=== PATIENT | male | born 1940 | race Caucasian/White ===

== ENCOUNTER 2024-06-02 07:38 | Inpatient (IN) | payer MEDICARE, SELFPAY ==
[2024-06-02] VITALS (50 sets, daily range): BP systolic 127–217; BP diastolic 73–158; PULSE 68–88; RESP 10–22; TEMP 36.1–36.6; O2SAT 92–98; BMI 24.3; BMI 23.1
--- NOTE | 2024-06-02 07:49 | EKG_ITS ---
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
--- NOTE | 2024-06-02 07:57 | DI.CT.S_ITS ---
PROCEDURE: CT ANGIO HEAD AND NECK INDICATIONS: neuro deficit, acute stroke suspected TECHNIQUE: After the administration of intravenous contrast, 1 mm thick sections acquired from the aortic arch through the [place]. 3-dimensional qaowhrw-olzfwsugy-gmynvbkrqe (MIP) and/or volume rendering reformats were acquired of the central intracranial vasculature and neck separately. For radiation dose reduction, the following was used: automated exposure control, adjustment of mA and/or kV according to patient size. COMPARISON: None. FINDINGS: Image quality: Diagnostic. BRAIN: CSF spaces: Ventricles are normal in size and shape. Basal cisterns are patent. No extra-axial fluid collections. Brain: No significant abnormality of the brain can be seen. Skull and face: Calvarium and facial bones appear intact, without suspicious lesions. Orbits appear normal. Sinuses: Sinuses and mastoids are clear. HEAD CT ANGIOGRAPHY: Anterior circulation: Intracranial internal carotid arteries are normal in size and flow. The flow within the paired anterior cerebral arteries is normal and symmetric. The flow within the middle cerebral arteries is normal and symmetric. The anterior communicating artery is seen. No aneurysms are seen. Posterior circulation: Visualized portions of the vertebral arteries demonstrate normal caliber, and join to form a normal appearing basilar artery. Flow within the posterior cerebral arteries is normal and symmetric. No aneurysms are seen. NECK CT ANGIOGRAPHY: Carotid system: The great vessels demonstrate a conventional anatomy as they arise from the aortic arch. The origins of the common carotid arteries appear patent. The common carotid arteries demonstrate normal caliber and courses. The bifurcation regions are both widely patent. The internal carotid arteries demonstrate normal calibers and courses. Posterior circulation: Atherosclerotic calcifications are noted involving origin of right vertebral artery with approximately 70% stenosis. The origin of vertebral artery is widely patent. The more superior extracranial portions of both vertebral arteries also demonstrate normal courses and calibers. They join to form a normal appearing basilar artery. Soft tissues: Visualized neck soft tissues demonstrate no suspicious abnormalities. Bones: No suspicious bony lesions. Visualized cervical spine appears normally aligned. IMPRESSION: 1. No hemodynamically significant stenosis or aneurysm is seen in the intracranial circulation. 2. 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 3. No hemodynamically significant stenosis or aneurysm is seen in rest of bilateral neck arteries Any quantitative measurements of stenosis were performed using NASCET criteria. Dictated by: Sunny Gan M.D. on 06/02/2024 at 8:25 Approved by: Sunny Gan M.D. on 06/02/2024 at 8:33
--- NOTE | 2024-06-02 07:57 | DI.CT.S_ITS ---
PROCEDURE: CT HEAD/BRAIN WO CON INDICATIONS: neuro deficit, stroke suspected TECHNIQUE: Noncontrast 4.5 mm thick angled axial sections acquired from the foramen magnum to the vertex, with coronal and sagittal reformats. For radiation dose reduction, the following was used: automated exposure control, adjustment of mA and/or kV according to patient size. COMPARISON: None. FINDINGS: Image quality: Diagnostic. CSF spaces: Basal cisterns are patent. No extra-axial fluid collections. The ventricles are symmetric in size and shape. Brain: No intracranial bleeds or masses. There is cerebral volume loss for age, with resultant ventricular and sulcal prominence. There are periventricular and deep white matter chronic small vessel ischemic changes. There is intracranial internal carotid artery atherosclerosis. Skull and face: Calvarium and visualized facial bones appear intact, without suspicious lesions. Sinuses: Complete opacification of right maxillary sinus. Moderate mucosal thickening in left maxillary sinus is seen. Bilateral mastoid air cells are well aerated. IMPRESSION: 1. No acute intracranial pathology. 2. Age related volume loss and mild white matter small vessel chronic ischemic changes. 3. Bilateral sinus disease as above. Dictated by: Sunny Gan M.D. on 06/02/2024 at 8:35 Approved by: Sunny Gan M.D. on 06/02/2024 at 8:36
--- NOTE | 2024-06-02 07:58 | DI.RAD.S_ITS ---
PROCEDURE: XR CHEST 1V INDICATIONS: neuro deficit TECHNIQUE: One view of the chest was acquired. COMPARISON: None. FINDINGS: Surgical changes and devices: None. Lungs and pleura: Lungs are clear. No pleural effusions or pneumothorax. Mediastinum: Mediastinal contours appear normal. Heart size is normal. Bones and chest wall: No suspicious bony lesions. Overlying soft tissues appear unremarkable. IMPRESSION: No acute cardiopulmonary abnormality is seen. Dictated by: Richar Currie M.D. on 06/02/2024 at 8:18 Approved by: Richar Currie M.D. on 06/02/2024 at 8:18
[2024-06-02 08:07] LABS: INR 0.9 (0.9-1.3); Prothrombin Time 10.4 SECONDS (9.4-12.5)
[2024-06-02 08:10] LABS: PTT Partial Thromboplastin Tim 37 SECONDS (25.1-36.5)
[2024-06-02 08:11] LABS: Add Manual Diff / Slide Review NO; Basophils Absolute Auto 100 /uL (0-100); Basophils Percent Auto 0.8 % (0-2); Eosinophils Absolute Auto 200 /uL (0-450); Eosinophils Percent Auto 2.4 % (2-4); Hematocrit 49.1 % (41-53); Hemoglobin 16.6 g/dL (13.5-17.5); Lymphocytes Absolute Auto 1700 /uL (1100-4500); Lymphocytes Percent Auto 17.1 % (25-40); Mean Corpuscular HGB Conc 33.9 % (30-36); Mean Corpuscular Hemoglobin 29.6 PG (26-34); Mean Corpuscular Volume 87.4 fL (80-100); Monocytes Absolute Auto 1000 /uL (0-900); Monocytes Percent Auto 10.4 % (3-14); Neutrophils Absolute Auto 6700 /uL (1500-7000); Neutrophils Percent Auto 69.3 % (50-75); Platelet Count 251 X10^3/uL (150-400); Red Blood Cell Count 5.61 X10^6/uL (4.5-5.9); Red Cell Distribution Width 13.4 % (11.6-14.8); White Blood Cell Count 9.7 X10^3/uL (4.5-11.0)
[2024-06-02 08:15] LABS: Alanine Aminotransferase 34 IU/L (<50); Albumin 4.6 g/dL (3.5-5.0); Albumin Globulin Ratio 1.3 (1.0-2.8); Alkaline Phosphatase 66 U/L (38-126); Aspartate Aminotransferase 38 IU/L (17-59); BUN Creatinine Ratio 22.8 (6-22); Bilirubin Total 1.3 mg/dL (0.2-1.3); Blood Urea Nitrogen 38 mg/dL (9-20); Calcium 9.9 mg/dL (8.4-10.2); Carbon Dioxide 16 mmol/L (22-32); Chloride 107 mmol/L (98-107); Estimated Glomerular Filt Rate 40 mL/min (>60); Globulin 3.5 g/dL (1.7-4.1); Glucose 177 mg/dL (80-110); HEMOLYSIS 40 (0-50); Potassium 4.8 mmol/L (3.4-5.1); Sodium 137 mmol/L (137-145); Total Protein 8.1 g/dL (6.3-8.2)
--- NOTE | 2024-06-02 08:19 | ED.NEUROSD ---
HPI - Neuro Symptoms/Deficit General Chief Complaint: Neuro Symptoms/Deficit Stated Complaint: R leg weakness Time Seen by Provider: 06/02/24 07:45 Source: patient Mode of arrival: Ambulatory History of Present Illness HPI Narrative: This is an 84-year-old male with a history of hypertension, dementia and coronary artery disease presenting with right leg weakness. His last known normal was 2100, 9:00 p.m. last night, he has seen about 7:30 a.m.. He says that he woke up about 6:00 a.m. went to get out of bed and his right leg was weak and unable to support himself with it. He also reports he has got a sensation of numbness in his right leg. There is no leg or back pain. He has not had similar symptoms in the past and denies prior history of transient ischemic attack or stroke. He was just discharged recently from [facility] after being evaluated for chest pain. He has had a previous cardiac catheterization but during his last admission per his son's report did not have any invasive procedures. Of note, his son is a would be telemarketer and is 1 of the 2 medics who brings the patient today. He was not hypoglycemic pre-hospital and he was hypertensive pre-hospital. Patient denies headache chest pain. Records from [facility] were obtained, he was discharged on 05/31, yesterday. There was an echocardiogram that was done yesterday showed a 60-65% ejection fraction basal inferior and inferoseptal strange hypokinetic, mild enlargement of the ascending aorta, slight aortic valve calcification without stenosis otherwise no valvular disease was described. He was evaluated in the emergency department. Per note from yesterday, home medications include aspirin 81 mg a day Lipitor 40 mg daily Plavix 75 mg daily Plendil 10 mg daily glipizide 5 mg daily Cozaar 25 mg daily metformin 500 mg nitroglycerin as needed On Anticoagulants: No Related Data Allergies Allergy/AdvReac Type Severity Reaction Status Date / Time No Known Drug Allergies Allergy Verified 06/02/24 07:46 Review of Systems Hematologic/Lymphatic On Anticoagulants: No Patient History Social History Smoking Status: Never smoker Smoking Status: Never smoker Exam Narrative Exam Narrative: Elderly male appears to be in no distress Initial Vital Signs Initial Vital Signs: Vital Signs Pulse Oximetry 92 06/02/24 07:41 He is noted to be hypertensive on arrival [facility] Head: normocephalic and atraumatic Eyes Other: Pupils equal round and reactive extraocular movements are intact Neck Other: Neck is supple there is no carotid bruit his right carotid pulse is quite prominent. Resp Other: Lungs are clear no respiratory distress Cardio Other: Regular rhythm rate no murmur rub or gallop GI Other: Abdomen is soft and nontender Skin Other: Warm and dry Neuro Cranial Nerves: CN's II-XI intact bilaterally and tongue midline Cognition: normal cognition Speech: speech normal Motor: no pronator drift Sensory Exam: no sensory deficits noted Other: He is able to lift his right leg off the table but it drifts down, has decreased coordination odriqp-nrqz-facmpo on the right and heel-gayle on the right, no visual field cuts Scores NIH Stroke Scale Level of Conciousness: Alert, keenly responsive Ask month/age: Answers both questions correctly. Open/close eyes, close hand: Performs both tasks correctly Best gaze horizontal: Normal Visual odell: No visual loss Facial palsy: Normal symetrical movement Left arm drift: No drift for full 10 sec Right arm drift: No drift for full 10 sec Left leg drift: No drift for full 5 sec Right leg drift: Drifts down, not to bed Limb ataxia: Present in two limbs Sensory on face/arms/legs: Normal, no sensory loss Best language: No aphasia, normal Dysarthria: Normal Extinction or inattention: No abnormality Total NIH Stroke scale score: 3 Course Orders Ordered: ED Orders 06/02/24 07:44 CBC Auto Diff [Complete Blood Count AUTO DIFF] Stat CMP [Comprehensive Metabolic Panel] Stat PTT Partial Thromboplastin Etienne Stat Prothrombin Time INR Stat 06/02/24 07:57 CT angio head and neck Stat CT head/brain wo con Stat 06/02/24 07:58 Chest [XR chest 1V] Stat 06/02/24 09:35 Troponin I Stat 06/02/24 11:37 Troponin I Stat Nitroglycerin (Nitroglycerin 0.4 Mg Sl Tab) 0.4 mg SL [id number] PRN PRN Reason: Chest Pain Last Admin: 06/02/24 10:33 Dose: 0.4 mg Documented By: Admin: 06/02/24 10:00 Dose: 0.4 mg Documented By: LOUIE Discontinued Medications Nitroglycerin (Nitroglycerin Oint 1 Inch/Gm Oint...G.) 0.5 inch TOP NOW ONE Stop: 06/02/24 11:17 Last Admin: 06/02/24 11:26 Dose: 0.5 inch Documented By: CANDIS Reevaluation(s) Reevaluation #1: Patient was re-evaluated at 9:45 a.m.. He is complaining of left-sided chest and shoulder pain that he describes as sharp. This apparently is the same pain that had took him to [facility] yesterday, onset yesterday was with exertion today obviously is at rest. Pain is still present. His is present now, confirms previous history, also has a current med list and the patient is not presently on Plavix. Patient did take 325 of aspirin today. Reevaluation #2: At 11:15 a.m., he is reporting some continued chest pain and left shoulder pain this is improved with nitroglycerin but still present. Additionally however the pain also improves when his arm is internally rotated and laid across his abdomen as opposed and when his arm is lying beside him. First troponin is normal. I have ordered a dose of nitroglycerin paste, the patient's blood pressure is fairly consistent with his arrival. We will discuss with the hospitalist Reevaluation #3: Patient resting comfortably, pain-free Consultations Consultation #1: D/W Dr Luna, hospitalist, accepts admission. Vital Signs Vital signs: Vital Signs - 8 hr 06/02/24 07:41 06/02/24 07:42 06/02/24 07:42 Temperature Pulse Rate 88 Respiratory Rate Blood Pressure 208/108 H Pulse Oximetry 92 98 Oxygen Delivery Method Room Air 06/02/24 07:46 06/02/24 08:00 06/02/24 08:30 Temperature 97.9 F Pulse Rate 88 74 70 Respiratory Rate 18 Blood Pressure 208/108 H Pulse Oximetry 97 98 97 Oxygen Delivery Method Room Air 06/02/24 08:47 06/02/24 08:47 06/02/24 08:47 Temperature Pulse Rate 74 74 Respiratory Rate 12 10 L Blood Pressure 200/91 H 200/91 H Pulse Oximetry 97 96 Oxygen Delivery Method Room Air 06/02/24 09:00 06/02/24 09:00 06/02/24 09:30 Temperature Pulse Rate 72 Respiratory Rate 10 L Blood Pressure 165/79 H 174/94 H Pulse Oximetry 97 Oxygen Delivery Method 06/02/24 09:30 06/02/24 10:00 06/02/24 10:00 Temperature Pulse Rate 74 74 Respiratory Rate 12 Blood Pressure 200/91 H 200/91 H Pulse Oximetry 98 Oxygen Delivery Method Room Air 06/02/24 10:00 06/02/24 10:10 06/02/24 10:10 Temperature Pulse Rate 75 83 Respiratory Rate 12 16 Blood Pressure 159/88 H Pulse Oximetry 97 96 Oxygen Delivery Method 06/02/24 10:30 06/02/24 10:30 06/02/24 10:40 Temperature Pulse Rate 77 Respiratory Rate Blood Pressure 167/90 H 127/74 Pulse Oximetry 97 Oxygen Delivery Method 06/02/24 10:40 06/02/24 10:45 06/02/24 10:45 Temperature Pulse Rate 86 84 Respiratory Rate 12 13 Blood Pressure 132/78 Pulse Oximetry 96 95 Oxygen Delivery Method 06/02/24 10:50 06/02/24 10:50 06/02/24 10:55 Temperature Pulse Rate 81 Respiratory Rate Blood Pressure 167/79 H 172/89 H Pulse Oximetry 96 Oxygen Delivery Method 06/02/24 10:55 06/02/24 11:00 06/02/24 11:00 Temperature Pulse Rate 79 79 Respiratory Rate 12 14 Blood Pressure 171/92 H Pulse Oximetry 96 97 Oxygen Delivery Method 06/02/24 11:05 06/02/24 11:05 06/02/24 11:10 Temperature Pulse Rate 80 Respiratory Rate 19 Blood Pressure 174/93 H 170/87 H Pulse Oximetry 97 Oxygen Delivery Method 06/02/24 11:10 06/02/24 11:15 06/02/24 11:15 Temperature Pulse Rate 78 79 Respiratory Rate 11 L 20 Blood Pressure 176/93 H Pulse Oximetry 97 97 Oxygen Delivery Method 06/02/24 11:20 06/02/24 11:20 06/02/24 11:25 Temperature Pulse Rate 77 Respiratory Rate 11 L Blood Pressure 181/87 H 181/89 H Pulse Oximetry 97 Oxygen Delivery Method 06/02/24 11:25 06/02/24 11:26 06/02/24 11:30 Temperature Pulse Rate 77 77 Respiratory Rate 12 Blood Pressure 190/94 H 190/94 H Pulse Oximetry 97 Oxygen Delivery Method 06/02/24 11:30 06/02/24 11:35 06/02/24 11:35 Temperature Pulse Rate 79 76 Respiratory Rate 16 11 L Blood Pressure 174/93 H Pulse Oximetry 97 97 Oxygen Delivery Method 06/02/24 11:40 06/02/24 11:40 06/02/24 11:45 Temperature Pulse Rate 75 Respiratory Rate 12 Blood Pressure 161/89 H 172/90 H Pulse Oximetry 97 Oxygen Delivery Method 06/02/24 11:45 06/02/24 11:50 06/02/24 11:50 Temperature Pulse Rate 76 75 Respiratory Rate 14 12 Blood Pressure 181/82 H Pulse Oximetry 96 95 Oxygen Delivery Method 06/02/24 11:55 06/02/24 11:55 06/02/24 12:00 Temperature Pulse Rate 74 Respiratory Rate 12 Blood Pressure 167/94 H 202/158 H Pulse Oximetry 96 Oxygen Delivery Method 06/02/24 12:00 06/02/24 12:03 06/02/24 12:03 Temperature Pulse Rate 79 76 Respiratory Rate 22 11 L Blood Pressure 194/88 H Pulse Oximetry 97 97 Oxygen Delivery Method 06/02/24 12:05 06/02/24 12:05 06/02/24 12:10 Temperature Pulse Rate 76 76 Respiratory Rate 15 17 Blood Pressure 186/77 H Pulse Oximetry 97 96 Oxygen Delivery Method 06/02/24 12:10 Temperature Pulse Rate Respiratory Rate Blood Pressure 172/86 H Pulse Oximetry Oxygen Delivery Method MDM - Neuro Symptoms/Deficit Lab Data Lab results narrative: CBC with diff is unremarkable, INR normal, CMP notable for a glucose of 177, creatinine is elevated at 1.67 06/02/24 07:44 06/02/24 07:44 Labs: Lab Results 06/02/24 06/02/24 06/02/24 Range/Units 07:44 09:35 11:37 WBC 9.7 (4.5-11.0) X10^3/uL RBC 5.61 (4.5-5.9) X10^6/uL Hgb 16.6 (13.5-17.5) g/dL Hct 49.1 (41-53) % MCV 87.4 (80-100) fL MCH 29.6 (26-34) PG MCHC 33.9 (30-36) % RDW 13.4 (11.6-14.8) % Plt Count 251 (150-400) X10^3/uL Neut % (Auto) 69.3 (50-75) % Lymph % (Auto) 17.1 L (25-40) % [place] % (Auto) 10.4 (3-14) % Eos % (Auto) 2.4 (2-4) % Baso % (Auto) 0.8 (0-2) % Neut # (Auto) 6700 (4846-3117) /uL Lymph # (Auto) 1700 (3054-5720) /uL [place] # (Auto) 1000 H (0-900) /uL Eos # (Auto) 200 (0-450) /uL Baso # (Auto) 100 (0-100) /uL PT 10.4 (9.4-12.5) SECONDS INR 0.9 (0.9-1.3) APTT 37 H (25.1-36.5) SECONDS Sodium 137 (137-145) mmol/L Potassium 4.8 (3.4-5.1) mmol/L Chloride 107 (98-107) mmol/L Carbon Dioxide 16 L (22-32) mmol/L BUN 38 H (9-20) mg/dL Creatinine 1.67 H (0.66-1.25) mg/dL Estimated GFR 40 L (>60) mL/min BUN/Creatinine Ratio 22.8 H (6-22) Glucose 177 H (80-110) mg/dL Calcium 9.9 (8.4-10.2) mg/dL Total Bilirubin 1.3 (0.2-1.3) mg/dL AST 38 (17-59) IU/L ALT 34 (<50) IU/L Alkaline Phosphatase 66 (38-126) U/L Troponin I < 0.012 < 0.012 (0.01-0.034) ng/mL Total Protein 8.1 (6.3-8.2) g/dL Albumin 4.6 (3.5-5.0) g/dL Globulin 3.5 (1.7-4.1) g/dL Albumin/Globulin Ratio 1.3 (1.0-2.8) Imaging Data Chest x-ray: My Impression: Independent review of chest x-ray, no acute findings Radiologist's Impression: Per Radiology no acute CT scan - head: My Impression: Independently reviewed CT head, no acute findings Radiologist's Impression: Reviewed radiology report, no acute abnormality reported CTA - brain/neck: Radiologist's Impression: [address] [address] [address] Scan Report Signed Patient: Migue Calderón MR#: [id number] : 1940 Acct:[id number] Age/Sex: 84 / M Date of Service: 06/02/24 Loc: ED Accession Number: [id number] Procedure: CT angio head and neck Ordering Provider: Ashvin Jamil MD PROCEDURE: CT ANGIO HEAD AND NECK INDICATIONS: neuro deficit, acute stroke suspected TECHNIQUE: After the administration of intravenous contrast, 1 mm thick sections acquired from the aortic arch through the [place]. 3-dimensional edtuncr-pthufaqlw-yvmpehbfdy (MIP) and/or volume rendering reformats were acquired of the central intracranial vasculature and neck separately. For radiation dose reduction, the following was used: automated exposure control, adjustment of mA and/or kV according to patient size. COMPARISON: None. FINDINGS: Image quality: Diagnostic. BRAIN: CSF spaces: Ventricles are normal in size and shape. Basal cisterns are patent. No extra-axial fluid collections. Brain: No significant abnormality of the brain can be seen. Skull and face: Calvarium and facial bones appear intact, without suspicious lesions. Orbits appear normal. Sinuses: Sinuses and mastoids are clear. HEAD CT ANGIOGRAPHY: Anterior circulation: Intracranial internal carotid arteries are normal in size and flow. The flow within the paired anterior cerebral arteries is normal and symmetric. The flow within the middle cerebral arteries is normal and symmetric. The anterior communicating artery is seen. No aneurysms are seen. Posterior circulation: Visualized portions of the vertebral arteries demonstrate normal caliber, and join to form a normal appearing basilar artery. Flow within the posterior cerebral arteries is normal and symmetric. No aneurysms are seen. NECK CT ANGIOGRAPHY: Carotid system: The great vessels demonstrate a conventional anatomy as they arise from the aortic arch. The origins of the common carotid arteries appear patent. The common carotid arteries demonstrate normal caliber and courses. The bifurcation regions are both widely patent. The internal carotid arteries demonstrate normal calibers and courses. Posterior circulation: Atherosclerotic calcifications are noted involving origin of right vertebral artery with approximately 70% stenosis. The origin of vertebral artery is widely patent. The more superior extracranial portions of both vertebral arteries also demonstrate normal courses and calibers. They join to form a normal appearing basilar artery. Soft tissues: Visualized neck soft tissues demonstrate no suspicious abnormalities. Bones: No suspicious bony lesions. Visualized cervical spine appears normally aligned. IMPRESSION: 1. No hemodynamically significant stenosis or aneurysm is seen in the intracranial circulation. 2. 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 3. No hemodynamically significant stenosis or aneurysm is seen in rest of bilateral neck arteries Any quantitative measurements of stenosis were performed using NASCET criteria. Dictated by: Sunny Gan M.D. on 06/02/2024 at 8:25 Approved by: Sunny Gan M.D. on 06/02/2024 at 8:33 ECG Data Interpretation: ECG shows normal sinus rhythm at [address] segment changes intervals are normal MDM Narrative Medical decision making narrative: 84-year-old male presenting with right-sided leg weakness onset overnight while sleeping. Last known normal was approximately 10 hours prior to arrival. Total stroke score was 3. No hemorrhage on CT and no major cerebrovascular disease. He had received aspirin prior to arrival. Additionally has a history of coronary artery disease and had some chest pain which resolved it is not clear that nitroglycerin cause a resolution chest pain occurred while at rest in the emergency department. No ischemic EKG changes and troponins were normal x2. He had just been at [facility] yesterday and was evaluated for similar chest pain. I do not think he is having an acute cardiac event at present. Patient will be admitted to the hospitalist service. Discharge Plan Departure Patient Disposition: Admitted as Observation Clinical Impression: Cerebrovascular accident Qualifiers: CVA mechanism: unspecified Qualified Code(s): I63.9 - Cerebral infarction, unspecified Chest pain Qualifiers: Chest pain type: unspecified Qualified Code(s): R07.9 - Chest pain, unspecified Admit Date/Time: 06/02/24 12:30
--- NOTE | 2024-06-02 09:36 | EKG_ITS ---
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
[2024-06-02] MEDS: NITROGLYCERIN 0.4 MG SL TAB SL ×2 (10:00→10:33)
--- NOTE | 2024-06-02 10:01 | PC.NURSE ---
Patient reports left chest and left arm/shoulder pain at 9/10 at this time. 1 nitro given.
[2024-06-02 10:25] LABS: Troponin I < 0.012 ng/mL (0.01-0.034)
[2024-06-02] MEDS: NITROGLYCERIN OINT 1 INCH/GM OINT...G. 0.5 INCH TOP (11:26)
[2024-06-02 12:15] LABS: Troponin I < 0.012 ng/mL (0.01-0.034)
--- NOTE | 2024-06-02 12:38 | DI.MRI.S_ITS ---
PROCEDURE: MR HEAD/BRAIN WO CON INDICATIONS: R leg weakness, r/o CVA TECHNIQUE: Non-contrast axial T1 spin echo, axial T2 fast spin echo, sagittal and axial FLAIR, coronal T2 fast spin echo, axial gradient echo, axial diffusion and ADC through the brain. COMPARISON: [facility], CT, CT ANGIO HEAD AND NECK, 06/02/2024, 8:08. [facility], CT, CT HEAD/BRAIN WO CON, 06/02/2024, 8:08. FINDINGS: Image quality: Excellent. CSF spaces: Ventricles appear symmetric in size and shape. Basal cisterns are patent. No extra-axial fluid collections. Brain: Abnormal diffusion restriction in the left [place] radiata extending to the posterior limb of the left internal capsule (16-18). No intracranial bleeds or mass effects. There is cerebral volume loss for age. There are periventricular and deep white matter chronic small vessel ischemic changes. Brainstem appears normal. No chronic ischemic insults. Normal intravascular flow voids are present. Skull and face: Calvarial bone marrow is normal in signal. Orbits are normal. Sinuses: Complete opacification of the right maxillary sinus (7/6), which can be seen with sinusitis. Mild mucosal thickening in the right maxillary sinus. Sinuses and mastoids are otherwise clear. IMPRESSION: 1. Acute stroke involving the left hays radiata white matter extending to the posterior limb of the internal capsule. 2. Other chronic changes noted above. These findings were communicated via telephone to the ordering provider, Dr Luna, by Malachi Norris MD on 06/02/2024 at 3:14 p.m.. Dictated by: Malachi Norris M.D. on 06/02/2024 at 15:04 Approved by: Malachi Norris M.D. on 06/02/2024 at 15:15
[2024-06-02] MEDS: CLOPIDOGREL 75 MG TABLET 300 MG PO (16:31)
[2024-06-02] MEDS: ASPIRIN 81 MG CHEW TAB 324 MG PO (16:33)
[2024-06-02] MEDS: INSULIN LISPRO 100 UNIT/ML 3ML VIAL SUBCUT ×2 (16:33→20:42)
--- NOTE | 2024-06-02 19:29 | P.HP_ITS ---
History of Present Illness History of Present Illness Date Patient Seen: 06/02/24 Time Patient Seen: 14:00 Chief complaint: R leg weakness Narrative: This is an 84-year-old male with a past medical history of dementia, coronary artery disease, type 2 diabetes, CKD stage 3 who was just recently admitted to [facility] but left against medical advice 2 days ago for currently unclear reasons, but the patient states this was due to inability to get some sort of testing done. He was doing okay at home but this morning reported that his right leg gave out and he was not moving it well. He denies any current complaints, thinking that his symptoms had largely resolved. He denied any current numbness, tingling, or weakness, though he did not try and stand on it since admission. He also continues to complain of left-sided shoulder pain that is worse with movement. He states that this is the pain that he was evaluated for the outside hospital. There he had an unremarkable echocardiogram with no wall motion abnormalities, and a stress test that was deemed probably low risk, based on the read available: There is a medium size, mild intensity basal to?mid inferior and inferoseptal wall defect. This is occurring in the setting of diaphragmatic attenuation which could account for the defect however ischemia and/or scar cannot be ruled out. No segmental wall motion abnormalities noted on gated imaging. He was admitted for further evaluation for either TIA or stroke. He did have an MRI already which did show an acute infarct in the left hays radiata. He was given an aspirin and Plavix load. Prior TTE at [facility] on 05/31 The ejection fraction is estimated to be 60-65%. The basal inferior and inferoseptal strange are hypokinetic. Diastolic parameters suggest probable normal left ventricular diastolic function and normal filling pressures. The right ventricle is normal in size and function. Pulmonary artery pressures cannot be estimated because of the lack of a measurable TR jet velocity but the IVC suggests a CVP of around 3 mmHg. The ascending aorta is mildly enlarged. Compared to the prior study 03/15/2019, the left ventricle is more dynamic and the anterior hypokinesis has resolved. [facility] results in 2019: 1) Coronary angiography: left dominance ?A. Left main: normal caliber vessel with 20% calcific stenosis distally. ?B. Left Anterior Descending (LAD) Artery: normal caliber vessel with 80% tubular calcific stenosis between the first and second diagonal branches. ? The first diagonal branch has 99% eccentric stenosis proximally and 2nd diagonal branch appears to have 80% ostial stenosis. ? ?C. Left Circumflex (LCx): ?Large caliber dominant vessel with mild luminal irregularities. ?There are collaterals going to the RCA. ?D. Right Coronary Artery: small to medium caliber vessel with chronic total occlusion in the mid segment. ?There are collaterals from the LCx to the RCA. [facility] Social History household members: spouse Smoking Status: Never smoker alcohol intake: former Meds Home Medications and Allergies Home Medications Medication Instructions Recorded Confirmed Type atorvastatin 40 mg tablet 40 mg PO DAILY 06/02/24 06/02/24 History empagliflozin 25 mg tablet 25 mg PO DAILY 06/02/24 06/02/24 History (Jardiance) felodipine 10 mg tablet,extended 10 mg PO DAILY 06/02/24 06/02/24 History release 24 hr glipizide 10 mg tablet, extended 10 mg PO BID 06/02/24 06/02/24 History release 24 hr linagliptin 5 mg tablet (Tradjenta) 5 mg PO DAILY 06/02/24 06/02/24 History losartan 100 mg tablet 100 mg PO DAILY 06/02/24 06/02/24 History metformin 500 mg tablet 500 mg PO BID 06/02/24 06/02/24 History Allergies Allergy/AdvReac Type Severity Reaction Status Date / Time No Known Drug Allergies Allergy Verified 06/02/24 07:46 Review of Systems Review of Systems Narrative: All other systems reviewed with the patient and are negative unless otherwise stated. Exam Vital Signs (past 8 hours): - 06/02/24 11:30 06/02/24 11:30 06/02/24 11:35 Temperature Pulse Rate 79 Respiratory Rate 16 Blood Pressure 190/94 H 174/93 H Pulse Oximetry 97 Oxygen Delivery Method Oxygen Flow Rate 06/02/24 11:35 06/02/24 11:40 06/02/24 11:40 Temperature Pulse Rate 76 75 Respiratory Rate 11 L 12 Blood Pressure 161/89 H Pulse Oximetry 97 97 Oxygen Delivery Method Oxygen Flow Rate 06/02/24 11:45 06/02/24 11:45 06/02/24 11:50 Temperature Pulse Rate 76 Respiratory Rate 14 Blood Pressure 172/90 H 181/82 H Pulse Oximetry 96 Oxygen Delivery Method Oxygen Flow Rate 06/02/24 11:50 06/02/24 11:55 06/02/24 11:55 Temperature Pulse Rate 75 74 Respiratory Rate 12 12 Blood Pressure 167/94 H Pulse Oximetry 95 96 Oxygen Delivery Method Oxygen Flow Rate 06/02/24 12:00 06/02/24 12:00 06/02/24 12:03 Temperature Pulse Rate 79 Respiratory Rate 22 Blood Pressure 202/158 H 194/88 H Pulse Oximetry 97 Oxygen Delivery Method Oxygen Flow Rate 06/02/24 12:03 06/02/24 12:05 06/02/24 12:05 Temperature Pulse Rate 76 76 Respiratory Rate 11 L 15 Blood Pressure 186/77 H Pulse Oximetry 97 97 Oxygen Delivery Method Oxygen Flow Rate 06/02/24 12:10 06/02/24 12:10 06/02/24 12:16 Temperature Pulse Rate 76 Respiratory Rate 17 Blood Pressure 172/86 H 203/94 H Pulse Oximetry 96 Oxygen Delivery Method Oxygen Flow Rate 06/02/24 12:16 06/02/24 12:20 06/02/24 12:20 Temperature Pulse Rate 76 81 Respiratory Rate 13 16 Blood Pressure 217/95 H Pulse Oximetry 96 Oxygen Delivery Method Oxygen Flow Rate 06/02/24 12:25 06/02/24 12:25 06/02/24 12:30 Temperature Pulse Rate 83 Respiratory Rate 14 Blood Pressure 207/98 H 199/83 H Pulse Oximetry 98 Oxygen Delivery Method Oxygen Flow Rate 06/02/24 12:30 06/02/24 12:36 06/02/24 12:36 Temperature Pulse Rate 75 75 Respiratory Rate 12 14 Blood Pressure 174/87 H Pulse Oximetry 97 96 Oxygen Delivery Method Oxygen Flow Rate 06/02/24 12:40 06/02/24 12:40 06/02/24 12:46 Temperature Pulse Rate 79 74 Respiratory Rate 15 13 Blood Pressure 188/89 H Pulse Oximetry 98 96 Oxygen Delivery Method Oxygen Flow Rate 06/02/24 12:46 06/02/24 12:51 06/02/24 12:51 Temperature Pulse Rate 77 Respiratory Rate 13 Blood Pressure 182/90 H 208/93 H Pulse Oximetry 97 Oxygen Delivery Method Oxygen Flow Rate 06/02/24 12:55 06/02/24 12:55 06/02/24 13:00 Temperature Pulse Rate 76 77 Respiratory Rate 13 17 Blood Pressure 188/81 H Pulse Oximetry 98 96 Oxygen Delivery Method Oxygen Flow Rate 06/02/24 13:01 06/02/24 13:01 06/02/24 13:05 Temperature Pulse Rate 78 Respiratory Rate 12 Blood Pressure 176/96 H 178/93 H Pulse Oximetry 97 Oxygen Delivery Method Oxygen Flow Rate 06/02/24 13:05 06/02/24 13:23 06/02/24 17:23 Temperature 97.0 F L 97.1 F L Pulse Rate 79 80 68 Respiratory Rate 18 14 15 Blood Pressure 181/100 H 171/92 H Pulse Oximetry 97 95 92 Oxygen Delivery Method Room Air Oxygen Flow Rate 0 0 06/02/24 17:23 Temperature Pulse Rate Respiratory Rate Blood Pressure Pulse Oximetry 92 Oxygen Delivery Method Room Air Oxygen Flow Rate Oxygen Delivery Method Room Air Oxygen Flow Rate 0 Narrative Exam Narrative: General:? Patient is well developed and well nourished, in no distress at this time. HEENT:? Normocephalic, atraumatic, extraocular muscles intact, oral pharynx is clear and mucous membranes are moist. Neck: supple and symmetric, trachea is midline, no cervical adenopathy. Negative for JVD Chest:? Normal AP diameter and contour without kyphoscoliosis, no tachypnea, equal chest rise bilaterally. Lungs:? CTA b/l no wheezing rhonchi or rales. Cardio:?RRR no m/r/g. Abdomen: S NT ND. No CVA tenderness. Musculoskeletal:? Muscle strength and tone are equal within normal limits, no deformity. Extremities: No edema or joint effusions. No cyanosis or clubbing. Skin:? Pale,? Warm to touch,dry and intact without rashes, ulcerations or petechiae.? Neuro:? Alert and orientated to name, location, and somewhat situation. poor short term memory? sensation to touch intact in all extremities, no gross deficits noted of cranial nerves. Psych:? Patient has a well-kept appearance, appropriate affect, mental status attitude thought context and judgment are appropriate for age. Objective ECG Impression: Normal sinus rhythm with occasional PVC, no significant evidence for acute ischemia Labs 06/02/24 07:44 06/02/24 07:44 Labs: Laboratory Results - last 24 hr 06/02/24 06/02/24 06/02/24 07:44 09:35 11:37 WBC 9.7 RBC 5.61 Hgb 16.6 Hct 49.1 MCV 87.4 MCH 29.6 MCHC 33.9 RDW 13.4 Plt Count 251 Neut % (Auto) 69.3 Lymph % (Auto) 17.1 L Boyd % (Auto) 10.4 Eos % (Auto) 2.4 Baso % (Auto) 0.8 Neut # (Auto) 6700 Lymph # (Auto) 1700 Boyd # (Auto) 1000 H Eos # (Auto) 200 Baso # (Auto) 100 PT 10.4 INR 0.9 APTT 37 H Sodium 137 Potassium 4.8 Chloride 107 Carbon Dioxide 16 L BUN 38 H Creatinine 1.67 H Estimated GFR 40 L BUN/Creatinine Ratio 22.8 H Glucose 177 H Calcium 9.9 Total Bilirubin 1.3 AST 38 ALT 34 Alkaline Phosphatase 66 Troponin I < 0.012 < 0.012 Total Protein 8.1 Albumin 4.6 Globulin 3.5 Albumin/Globulin Ratio 1.3 Assessment & Plan Assessment & Plan narrative: 1. Acute CVA, present on admission - loading dose now with plavix and asa, not given in the ER - MR shows acute infarct in left carona radiata. He has good strength in his R leg now, but continue to monitor, screen with PT/OT. - continue DAPT x21 days with asa 81 mg and plavix 75 mg - Presented outside of tpa window with LKN the previous evening. - A1c at OSH was 11.9. Check lipids and TSH. - recent TTE at OSH without evidence for PFO, no need for repeat. - on atorvastatin 40 mg, will continue, consider increase to 80. 2. Coronary artery disease, chronic - recent stress test at [facility] as noted in HPI. - known CAD, dx [facility] in 2020, see HPI - asa,plavix, and statin as above. 3. Left shoulder pain - continue PT/OT, prn pain management currently - outpatient orthopedics evaluation, will check XR L shoulder to r/o occult fracture. 4. CKD stage 3 - continue to follow with BMP - CO2 16 on BMP, consider bicarb for renal protection depending on trend. 5. DM2 - no DKA based on admit labs, AG is 13. - hold home oral medications, consider lantus but with glucose <180 currently will try to control with HERMILO only. - A1c at OSH was 11.9 a few days ago. Code: Full, surrogate is patient's spouse DVT: Lovenox daily I have utilized all available immediate resources to obtain, update, or review the patient's current medications. Dispo: patient admitted under inpatient status. Unclear if will be able to discharge home or possible SNF, will have PT/OT evaluations. Additional history obtained via discussions with the ER provider. These discussions contributed to the creation of the above assessment and plan. I have reviewed patient's presenting documentation, labs, and imaging personally. Time-Based Coding :: [TOTAL MINUTES] spent with patient and on the chart (including review of chart, obtaining history, exam, reviewing outside data, placing orders, documenting exam and treatment plan, and counseling patient) on [DATE]. Quality VTE Deep Vein Thrombosis/Pulmonary Embolism Present on Admission: No
--- NOTE | 2024-06-02 19:44 | DI.RAD.S_ITS ---
PROCEDURE: XR SHOULDER LT MIN 2V INDICATIONS: L shoulder pain, r/o fracture TECHNIQUE: 3 views of the shoulder were acquired. COMPARISON: None. FINDINGS: Bones: No fractures or dislocations. No suspicious bony lesions. Visualized ribs appear intact. Moderate degenerative changes of the left acromioclavicular joint. Mild degenerative changes of the glenohumeral joint. Coracoclavicular and acromioclavicular intervals are maintained. Soft tissues: No suspicious soft tissue calcifications. IMPRESSION: Left shoulder without acute fracture or dislocation. Degenerative changes of the left acromioclavicular and glenohumeral joints. If there are persistent symptoms or clinical suspicion for pathology, then repeat radiographs or advanced imaging (CT or MRI) may be considered for further evaluation. Dictated by: Chinedu Whitaker M.D. on 06/02/2024 at 21:46 Approved by: Chinedu Whitaker M.D. on 06/02/2024 at 21:47
[2024-06-03] VITALS (8 sets, daily range): BP systolic 102–168; BP diastolic 68–89; PULSE 77–90; RESP 14–17; TEMP 35.7–36.5; O2SAT 93–97
[2024-06-03 06:22] LABS: Add Manual Diff / Slide Review NO; Basophils Absolute Auto 100 /uL (0-100); Basophils Percent Auto 1.2 % (0-2); Eosinophils Absolute Auto 200 /uL (0-450); Eosinophils Percent Auto 3.5 % (2-4); Hematocrit 44.3 % (41-53); Hemoglobin 15.3 g/dL (13.5-17.5); Lymphocytes Absolute Auto 800 /uL (1100-4500); Lymphocytes Percent Auto 13.1 % (25-40); Mean Corpuscular HGB Conc 34.5 % (30-36); Monocytes Absolute Auto 800 /uL (0-900); Monocytes Percent Auto 12.3 % (3-14); Neutrophils Absolute Auto 4400 /uL (1500-7000); Neutrophils Percent Auto 69.9 % (50-75); Platelet Count 205 X10^3/uL (150-400); Red Cell Distribution Width 13.5 % (11.6-14.8); White Blood Cell Count 6.3 X10^3/uL (4.5-11.0)
[2024-06-03 06:30] LABS: BUN Creatinine Ratio 23.9 (6-22); Blood Urea Nitrogen 38 mg/dL (9-20); Carbon Dioxide 16 mmol/L (22-32); Chloride 108 mmol/L (98-107); Cholesterol 186 mg/dL (140-199); Estimated Glomerular Filt Rate 43 mL/min (>60); Glucose 188 mg/dL (80-110); HDL Cholesterol 42 mg/dL (40-60); HEMOLYSIS < 15 (0-50); LDL Cholesterol Calculated 114 mg/dL (<100); Magnesium 2.1 mg/dL (1.6-2.3); Potassium 4.5 mmol/L (3.4-5.1); Sodium 137 mmol/L (137-145); Triglycerides 150 mg/dL (35-150)
[2024-06-03] MEDS: INSULIN LISPRO 100 UNIT/ML 3ML VIAL SUBCUT ×4 (08:50→21:27)
[2024-06-03] MEDS: ATORVASTATIN 20 MG TABLET 40 MG PO (09:08)
[2024-06-03] MEDS: ASPIRIN EC 81 MG TABLET PO (09:08)
[2024-06-03] MEDS: AMLODIPINE 5 MG TABLET 10 MG PO (09:08)
[2024-06-03] MEDS: CLOPIDOGREL 75 MG TABLET PO (09:08)
[2024-06-03] MEDS: ENOXAPARIN 40 MG/0.4 ML SYRINGE SUBCUT (09:09)
[2024-06-03] MEDS: LOSARTAN 50 MG TABLET 100 MG PO (09:09)
[2024-06-03] MEDS: INSULIN GLARGINE 100 UNIT/ML 3ML PEN 20 UNIT SUBCUT (11:53)
--- NOTE | 2024-06-03 12:24 | CM.DANOTE ---
DCP Assessment Note: Pt is a 84yo male, resident of [place], is admitted for a suspected TIA. Pt lives in a house with his , Clifford. Pt's Primary Care Provider is Dr. Dave Orellana and insurance is [facility]. Reviewed chart and discussed with multidisciplinary team pt's medical status and initial discharge needs. DCP met w/patient at bedside; introduced self and role. Present in the room are pt's and son, Jose. Patient was found in bed, alert and oriented, cooperative with assessment. Pt confirmed living situation and good support in and son. Pt expressed preference in discharging home when cleared. Pt has no hx of utilizing a home health agency or SNF Rehab. Pt did not feel home health or any other referrals in the community are necessary at this time. At this time of writing, PT/OT evaluations still pending. Plan: Awaiting PT/OT evaluations and recommendation for evolving discharge plans. CM team will follow closely for coordination of discharge plans. [place] Bat[facility] Discharge Planning/Care Management CM Discharge Assessment Start: 06/03/24 12:20 Freq: Status: Active Protocol: Document 06/03/24 12:21 MW (Rec: 06/03/24 12:24 MW [id number]) Discharge Planning Assessment Assigned Watch Band Assembler NATALEE Arias DPOA/Assigned Designee Name Sumanth Horton Contact Information [phone] Advance Directives? No History Provided By Patient,Family Member,Medical Record Has Patient been admitted in last 30 No days? Prior Living Arrangements House Household Members spouse Type of transporation used prior to Drives own vehicle admit Independent with ADL's Yes Is patient alert and oriented? Yes Caregiver for Another No Barriers to Discharge No Discharge Plan Home Referrals Initiated None needed Whiteboard Updated in Patient Room with Yes name and ext. # of Watch Band Assembler Comment [phone] Review Status In Process Please Provide Date Initial DC 06/03/24 Assessment Was Performed Next Review Type Continued Stay Review
--- NOTE | 2024-06-03 12:50 | OT.IP.EVAL ---
Addendum entered and electronically signed by Zahira Magallon OT 06/03/24 15:18: In PT session having more difficulty with his mobility needs. Therefore pt may benefit from skilled rehab. Original Note: Current Diagnoses Cerebral infarction, unspecified (06/02/24) Occupational Therapy Inpatient Evaluation/Re-Eval M1 PT/OT-IP Prior Functional Status Start: 06/03/24 12:52 Freq: NEEDED Status: Active Protocol: Document 06/03/24 12:52 [facility] (Rec: 06/03/24 13:14 [facility] [id number]) Medical Review Prior Functional Status Communication Pt has Alzheimer's dementia. Mobility and Gait Prior pt did not use a device to walk with. Activities of Daily Living and IADL's Pt was completely independent with all ADL needs and pt assisted with IADL needs. Pt states still drives, but states she is present to remind him where to go. Social History Household Members spouse Living Arrangements House Number of Floors (Floors) One Floor Number of Stairs To Enter/Railing? NO steps to enter. Home Environment Standard Height Toilet,Walk in Shower,Tub/Shower M2 OT-IP Current Condition Start: 06/03/24 12:52 Freq: Status: Active Protocol: Document 06/03/24 12:52 [facility] (Rec: 06/03/24 13:14 [facility] [id number]) Occupational Therapy Current Condition Current Condition Evaluation Date 06/03/24 Treatment Diagnosis S/P CVA Left Bond Radiata M3 OT- IP Subjective and Pain Start: 06/03/24 12:52 Freq: Status: Active Protocol: Document 06/03/24 12:52 [facility] (Rec: 06/03/24 13:14 [facility] [id number]) OT- Subjective Occupational Therapy Visit Type Type Initial Evaluation Visit Start Time 12:15 Visit Stop Time 12:50 Occupational Therapy Visit Comments Patient Comments Pt agreed to get up and pt's family present in the room. Patient/Caregiver Goals TO go home. OT Pain Assessment Pain When Pain Assessed At Rest Pain Present Pain Present Denied Pain M4 OT- IP ADL's Start: 06/03/24 12:52 Freq: Status: Active Protocol: Document 06/03/24 12:52 [facility] (Rec: 06/03/24 13:14 [facility] [id number]) OT [id number] Comments OT Self-Feeding Comments Not at meal time. OT ADL-Grooming General Evaluation Grooming Ability Standby Assistance Areas Needing Assistance Retrieving/Set-up of Grooming Items Comments OT Grooming Comments Set-up and vc how to use the automatic faucet. OT ADL-Oral Care General Eval Oral Care Ability Standby Assistance Comments Oral Care Comments VC for completeness. OT ADL-Dressing General Eval Lower Body Dressing Ability Standby Assistance Comments OT Dressing Comments Pt able to jcarlos/doff his socks with increased time. Pt tends not to cross his right leg and when able to cross her left leg to jcarlos his socks. OT ADL-Toileting Comments OT Toileting Comments Not performed. OT ADL-Bathing Comments OT Bathing Comments Not performed. Pt would benefit from shower chair at this time. M5 OT- IP IADL's Start: 06/03/24 12:52 Freq: Status: Active Protocol: Document 06/03/24 12:52 [facility] (Rec: 06/03/24 13:14 [facility] [id number]) OT-Instrumental Activities of Daily Living Home Safety Awareness Awareness of Need for Assistance at Home Decreased Awareness Ability to Problem Solve Emergency Unable to Problem Solve Situations Medication Management Medication Management Caregiver Administers Money Management Money Management Caregiver Provides Assistance Meal Preparation Meal Preparation Caregiver Provides Assist Laborer Wharf Laborer Wharf Caregiver Provides Assist Driving Driving Concerns Identified Regarding Safety M6 OT- IP Functional Cognition Start: 06/03/24 12:52 Freq: Status: Active Protocol: Document 06/03/24 12:52 [facility] (Rec: 06/03/24 13:14 [facility] [id number]) Cognitive Factors Limiting Selfcare Function Cognitive Ability Level of Alertness Alert,Confusional State Patient Orientation Name Attention Span Ability Capable of Focused Attention, Capable of Sustained Attention Ability to Follow Commands Able to Follow One Step Commands with Increased Time, Able to Follow One Step Commands with Repetition Memory Description Short Term Impaired,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 Pt able to follow commands but insistent on wanting to go home. Pt not able to recall any home set up at this time. OT- Vision and Hearing OT- Vision Assessment Vision Assessment Comments Pt's states pt does not need glasses but wears then by choice. M7 OT- IP Mobility and Balance Start: 06/03/24 12:52 Freq: Status: Active Protocol: Document 06/03/24 12:52 [facility] (Rec: 06/03/24 13:14 [facility] [id number]) OT-Transfer Assessment Sit to and From Stand Sit to and from Stand Minimal Assistance Transfers Transfer Ability Moderate Assistance Technique Transfer Destination Chair Transfer Technique Stand Step Pivot Devices Transfer Assistive Devices Gait Belt,Front Wheeled Walker Comments Mobility Comments Pt able to come to stand with DANAY and unsteady on his feet. Able to walk to the sink and pt having difficulty with his RLE and buckling and needing cues to be aware on his RLE. In addition to use the BUE on the FWW to assist. OT- Balance Assessment Sitting Balance and Reactions Static Sitting Balance Ability Normal Dynamic Sitting Balance Ability Good Standing Balance and Reactions Static Standing Balance Ability Fair Dynamic Standing Balance Ability Poor M8 OT- IP Objective Assessments Start: 06/03/24 12:52 Freq: Status: Active Protocol: Document 06/03/24 12:52 [facility] (Rec: 06/03/24 13:14 [facility] [id number]) OT Gross Range of Motion Upper Extremity Range of Motion Assessment Within Functional Limits OT Strength Comments Strength Comments RUE 4/5 to 4-/5 and LUE 4+/5 OT- Coordination Assessment Upper Extremity Finger to Nose Test Within Functional Limits Finger Tapping Test Right UE Impaired Comments Coordination Comments Increased time to jcarlos his watch but able to do with right hand. OT Sensation Assessment Comments Summary Comments Intact for light touch with BUE. M9 OT- IP Assessment and Plan Start: 06/03/24 12:52 Freq: Status: Active Protocol: Document 06/03/24 12:52 [facility] (Rec: 06/03/24 13:14 [facility] [id number]) OT Summary Assessment and Plan Potential Rehabilitation Potential Good Analytic Complexity at Evaluation Moderate Summary OT Impairments Strength,Balance,Coordination, Functional Cognition, Functional Mobility,Self- Feeding,Grooming,Dressing, Toileting,Bathing,Toilet Transfers,Shower Transfers, Activity Tolerance Progress Towards Goals Slow Progress due to Medical Issues,Slow Progress due to Activity Tolerance,Slow Progress due to Cognition Assessment Summary Pt here due to CVA and main barriers are decreased coordination with RLE>RUE and also weakness. Pt is very unsteady on his feet and now needing use of a FWW and extensive assist. Pt's son states after coming to the ED his RLE weakness was mostly resolved but now seem to have progressed more since being up on the floor. Ideally pending his progress and medically stability, pt to go home with 24/7 assist and home health if pt's family able to provide enough assist for pt. Goals Self-Feeding Goal Independent Grooming Goal Independent Dressing Goal Independent Toileting Goal Independent Bathing Goal Standby Assistance Toilet Transfer Goal Independent Shower Transfer Goal Standby Assistance Days to Meet Goals 25 Frequency of Treatment Other frequency 5x/week Treatment Plan OT Treatment Plan ADL Training,Functional Mobility,Patient/Family Education,Discharge Planning Discharge Recommendations OT Discharge Recommendations Home with 24/7 Assist Available,Home Health Transportation Needs at Discharge Private Vehicle
--- NOTE | 2024-06-03 14:38 | DIET.CONS ---
Dietary Consultation Note Admission Date: 06/02/2024 12:30 Assessment: 84 y M admitted for CVA. Dietitian consulted for uncontrolled DM. Met with pt and family in room. Reports they were unable to get his jardiance filled and started, but have PCP appt on June 07 and will get new rx. Has all other medications available and BG meter at home. Does FBG daily and recently has been 280. Family has had previous educ on nutrition for DM, familiar with portioning carbs and pairing macros. Diet recall: B-cereal (cherrios) L-small snack D-homemade meal meat and veggies and portioned carb Ht: 177.8 cm Wt: 73 kg BMI: 23.1 UBW: 82 kg few years ago per family, pt has had gradual weight loss over last few years Last BM: 06/01/24 (06/02/24 14:05) MNA: 12 Branden Score: 18 Diet: 06/03/24 Breakfast Carbohydrate Consistent Diet Diet Modifications: Carbohydrate level: Large (4 CHO) Reflex DM orders: No Food Texture: Level 7 - Regular Liquid Consistency: Level 0 - Thin Nutrition Percent Meal Consumed 100% 06/02/24 18:00 Percent Meal Consumed 50% 06/02/24 14:14 Labs: RBC 5.10 X10^6/uL (4.5-5.9) 06/03/24 05:40 Hgb 15.3 g/dL (13.5-17.5) 06/03/24 05:40 Hct 44.3 % (41-53) 06/03/24 05:40 Creatinine 1.59 mg/dL (0.66-1.25) H 06/03/24 05:40 Nutrition Diagnosis: Altered nutrition related lab values (A1c) r/t endocrine dysfunction aeb A1c 11.9% Interventions: Provided handout on following: -Plate Method, impact of macronutrients on blood sugar, meal timing, carbohydrate counting, pairing macronutrients and spreading out carbohydrates for better blood glucose management -Recommended servings for carbohydrates at meals and snacks EER: 45-60 g carbs/meal, 15-30 g carbs at snacks Monitoring/Evaluations: BG Electronically Signed by: Cassie Morales 06/03/24 14:38 Clinical Dietitian [address] [address]
--- NOTE | 2024-06-03 15:04 | PT.IIE ---
Current Diagnoses Cerebral infarction, unspecified (06/02/24) Physical Therapy Inpatient Evaluation/Re-Eval M1 PT/OT-IP Prior Functional Status Start: 06/03/24 12:52 Freq: NEEDED Status: Active Protocol: Document 06/03/24 15:04 DLM (Rec: 06/03/24 15:48 DL [id number]) Medical Review Prior Functional Status Medical History Reviewed Yes Diet/Fluid Consistency Regular Communication Pt has Alzheimer's dementia. Speech is intact. Decreased memory. Mobility and Gait Independent gait without device. Ambulates community distances. Activities of Daily Living and IADL's Pt was completelt independent with all ADL needs and pt assisted with IADL needs. Pt states still drives, but states she is present to remind him where to go. Social History Household Members spouse Living Arrangements House Number of Floors (Floors) One Floor Number of Stairs To Enter/Railing? NO steps to enter. Home Environment Standard Height Toilet,Walk in Shower,Tub/Shower Employment Status Retired Additional Social History Comment His Son is involved and very supportive. M2 PT-IP Current Condition Start: 06/03/24 15:14 Freq: NEEDED Status: Active Protocol: Document 06/03/24 15:04 DLM (Rec: 06/03/24 15:48 DL [id number]) Physical Therapy Current Condition Current Condition Evaluation Date 06/03/24 Treatment Diagnosis CVA with right LE deficits, impaired gait Onset Date 06/02/24 M3 PT-IP Subjective Start: 06/03/24 15:14 Freq: NEEDED Status: Active Protocol: Document 06/03/24 15:04 DLM (Rec: 06/03/24 15:48 DL [id number]) Subjective Physical Therapy Visit Type Type Initial Evaluation Visit Start Time 14:42 Visit Stop Time 15:04 Notes 21 minutes Number of ACCOUNT ADVISOR Visits 0 Physical Therapy Visit Comments Patient Comments He does not know why he is here. His family reports his right leg seems to be getting worse as the day progresses. Patient Goals he want to go home Therapy Pain Assessment Pain Present Pain Present Denied Pain M4 PT-IP Mobility and Gait Start: 06/03/24 15:14 Freq: NEEDED Status: Active Protocol: Document 06/03/24 15:04 DLM (Rec: 06/03/24 15:48 DL [id number]) PT-Transfer Assessment Sit to and From Stand Sit to and from Stand Contact Guard Assistance, Minimal Assistance,Use of Upper Extremities Equipment Transfer Assistive Device Gait Belt,Front Wheeled Walker Transfers Transfer Destination Chair Transfer Technique Stand Step Pivot Transfer Ability Level of Assist Contact Guard Assistance, Minimal Assistance,Use of Upper Extremities Comments Mobility Comments Pt sitting in recliner with a severe right sided lean. He makes no attempt to self- correct. When asked he can sit erect. Gait Assessment Gait Gait Assistance Required: Contact Guard Assist,Minimum Assistance Distance (Feet) 20 Assistive Devices Assistive Device Gait Belt,Front Wheeled Walker Gait Deviations General Gait Pattern Ataxic,Decreased Stride Length ,Decreased Feet Clearance Factors Limiting Gait Function Factors Limiting Gait Function Decreased Activity Tolerance, Decreased Strength,Difficulty Following Directions, Incoordination,Poor Balance Comments Gait Comments He demonstrates an unsafe gait pattern with decreased motor control of right LE. His pattern is inconsistent but a combination of decreased right knee control with buckling during weight bearing, decreased right foot clearance during stepping and poor control of right foot placement during stepping. With cuing he can make some corrections but can not consistently keep the corrections. He is impulsive and attempts to move too fast which further complicates his gait pattern. Stair Climbing Assessment Comments Stair Climbing Comments no stairs at home PT-Balance Assessment Sitting Balance and Reactions Static Sitting Balance Ability Fair Dynamic Sitting Balance Ability Fair Standing Balance and Reactions Static Standing Balance Ability Fair Dynamic Standing Balance Ability Fair Device Used FWW Comments Other Balance Tests/Deviations/Treatment Right lean in sitting with : decreased awareness. His decreased standing balance is related to his right LE impairments and difficulty compensating for it. M5 PT-IP Objective Assessments Start: 06/03/24 15:14 Freq: NEEDED Status: Active Protocol: Document 06/03/24 15:04 DL (Rec: 06/03/24 15:48 DL [id number]) Orientation Orientation/Cognition Level of Alertness Alert Orientation Name Safety Awareness Decreased Safety Awareness Memory Description Short Term Impaired Comments very poor Short term memory with pt asking 4 times during this visit why he is here and if he has to stay he has known hx of Alzheimers dementia Gross Range of Motion Upper Extremity ROM Assessment Within Functional Limits Lower Extremity ROM Assessment Within Functional Limits Strength Upper Extremity Strength Assessment Within Functional Limits Lower Extremity Strength Assessment Right Impaired Hip hip flex 4/5 Knee 4+/5 Ankle DF 4+/5 Comments Strength Comments quality of right LE movements are impaired with decreased motor control Coordination Assessment Gross Coordination Gross Coordination Impaired Assessment Foot Tapping Test Minimal Impairment Coordination Comments right LE impairments are worse in knee and hip than ankle Sensation Assessment Sensation Proprioception (Position) Impaired Comments Sensation Comments he reports no numbness, proprioception impaired in right LE Muscle Tone Muscle Tone WNL Yes Other Assessments Other Other Assessments right LE inattention this visit M6 PT-IP Treatment Start: 06/03/24 15:14 Freq: NEEDED Status: Active Protocol: Document 06/03/24 15:04 DLM (Rec: 06/03/24 15:48 DL [id number]) Physical Therapy Treatment Exercises Exercises Ankle Pumps,Seated Knee Flexion/Extension Education Education Provided Safety Other Treatments Other Treatment Performed His and Son are present this visit. Educated all present regarding his deficits . Also seated hip flexion started this visit with focus on motor control for all exercises. M7 PT-IP Assessment and Plan Start: 06/03/24 15:14 Freq: NEEDED Status: Active Protocol: Document 06/03/24 15:04 DLM (Rec: 06/03/24 15:48 DL [id number]) PT Summary Assessment and Plan Potential Rehabilitation Potential Good Status of Condition at Evaluation Evolving Summary Impairments Strength,Balance,Coordination, Sensation,Cognition,Bed Mobility,Transfers,Gait, Activity Tolerance Assessment Summary Migue is alert and sitting up in the recliner with the family present. He was admitted with right LE weakness. Testing shows acute stroke in left hays radiata and internal capsule. His family reports his right LE seems to be getting worse today. On clinical exam he has mild right LE weakness but more severe coordination and proprioceptive impairments. His right knee isidro and his foot drags during gait. He sits in the recliner with a severe right sided lean that he only corrects when asked. Due to his Alzheimers dementia his short term memory is poor which makes it harder for him to manage his new right sided deficits. He is not safe to discharge home at this time and is at very high fall risk. Anticipate he will need SNF rehab to assist with his recovery. Will need to closely monitor his right sided deficits this admission since pt reports worsening of symptoms since admission. Goals Bed Mobility Goal Independent Transfer Goal Standby Assistance,Front Wheeled Walker Gait Goal Standby Assistance,Front Wheel Walker Gait Distance 150 feet Days to Meet Goals 7 Frequency of Treatment Frequency Of Treatment Once a Day Treatment Plan Physical Therapy Treatment Plan Bed Mobility Training,Transfer Training,Gait Training, Therapeutic Exercise,Balance Retraining,Discharge Planning, Neuromuscular Re-ed Precautions Other Precautions high fall risk Alzheimer's dementia Recommendations To Nursing Amount of Assist Needed 1 Person Assist Discharge Recommendations PT Discharge Recommendations SNF Rehab Other Discharge Recommendations high fall risk Transportation Needs at Discharge Private Vehicle - PT assist 1P
--- NOTE | 2024-06-03 20:03 | P.PN_ITS ---
Subjective Subjective Interval history: 84-year-old male with dementia, coronary artery disease, type 2 diabetes, CKD 3 admitted with an acute left hays radiata stroke last evening. Patient reports he is feeling overall reasonably good. He expresses some frustration about not being able to discharge home. His and son are at bedside. OT worked with this this morning and felt he did reasonably well. However physical therapy worked with him this afternoon and reported that he was not safe with ambulation and was a high fall risk. Exam Vital Signs (past 8 hours): - 06/03/24 13:00 06/03/24 13:00 06/03/24 17:00 Temperature 96.3 F L 97.7 F Pulse Rate 83 89 Respiratory Rate 15 14 Blood Pressure 139/84 102/68 Pulse Oximetry 93 96 96 Oxygen Delivery Method Room Air Oxygen Flow Rate 0 0 06/03/24 17:00 06/03/24 19:41 Temperature 96.6 F L Pulse Rate 90 Respiratory Rate 16 Blood Pressure 154/86 H Pulse Oximetry 96 96 Oxygen Delivery Method Nasal Cannula Oxygen Flow Rate 2 Oxygen Delivery Method Nasal Cannula Oxygen Flow Rate 2 Narrative Exam Narrative: GEN: Elderly male, very pleasant, Alert and oriented x 3, NAD HEENT:NC, Face symmetric CHEST: Respiratory excursions symmetric, CTAB CV: RRR, no M/R/G ABD: Soft, NT/ND, BT present in all 4 quadrants, no organomegaly or masses EXTR: warm, well perfused, no C/C/E SKIN: warm and dry, no rash NEURO: Alert and oriented x 3, mildly weak right lower extremity compared to the left, sensation intact throughout Objective Labs 06/03/24 05:40 06/03/24 05:40 Labs: Laboratory Results - last 24 hr 06/03/24 05:40 WBC 6.3 RBC 5.10 Hgb 15.3 Hct 44.3 MCV 87.0 MCH 30.0 MCHC 34.5 RDW 13.5 Plt Count 205 Neut % (Auto) 69.9 Lymph % (Auto) 13.1 L [place] % (Auto) 12.3 Eos % (Auto) 3.5 Baso % (Auto) 1.2 Neut # (Auto) 4400 Lymph # (Auto) 800 L [place] # (Auto) 800 Eos # (Auto) 200 Baso # (Auto) 100 Sodium 137 Potassium 4.5 Chloride 108 H Carbon Dioxide 16 L BUN 38 H Creatinine 1.59 H Estimated GFR 43 L BUN/Creatinine Ratio 23.9 H Glucose 188 H Calcium 9.0 Magnesium 2.1 Triglycerides 150 Cholesterol 186 LDL Cholesterol, Calc 114 H HDL Cholesterol 42 TSH 2.00 PFSH Social History household members: spouse Smoking Status: Never smoker alcohol intake: former Assessment & Plan Assessment & Plan narrative: 1. Acute left hays radiata stroke Patient will be on 21 days of dual antiplatelet therapy, followed by aspirin monotherapy. A1c was 11.9% at [facility] during his cardiac workup earlier in the week. LDL was 114 here with total cholesterol of 186, triglycerides of 150, HDL of 42. He will be continued on atorvastatin 40 mg daily. We will work towards better glycemic control as well. Based on his deficits with therapy today, will look at fci at discharge. 2. Diabetes mellitus type 2 Will continue his usual outpatient medications upon discharge, but will give 20 units of Lantus today due to very high blood sugars. Continue controlled carb diet. Per pharmacy protocol, Jardiance is not on formulary and he will be transitioned to Lantus 10 units while he is hospitalized. 3. Coronary artery disease Negative workup at [facility] earlier in the week. Continues on aspirin and statin therapy. He was not placed on Plavix during his most recent hospitalization 4. CKD 3 Creatinine stable at 1.59 today. 5. Left shoulder pain X-ray done yesterday reveals degenerative changes of the left AC and glenohumeral joints. Continue working with PT Code status Full Prophylaxis Lovenox Disposition Pending Time-Based Coding :: [TOTAL MINUTES] spent with patient and on the chart (including review of chart, obtaining history, exam, reviewing outside data, placing orders, documenting exam and treatment plan, and counseling patient) on [DATE]. Quality VTE Deep Vein Thrombosis/Pulmonary Embolism Present on Admission: No
[2024-06-03] MEDS: QUETIAPINE 25 MG TABLET PO (22:52)
[2024-06-04] VITALS (13 sets, daily range): BP systolic 105–162; BP diastolic 55–85; PULSE 72–88; RESP 16–18; TEMP 35.9–36.4; O2SAT 95–98
[2024-06-04 07:03] LABS: Add Manual Diff / Slide Review NO; Basophils Absolute Auto 100 /uL (0-100); Basophils Percent Auto 1.2 % (0-2); Eosinophils Absolute Auto 200 /uL (0-450); Eosinophils Percent Auto 4.3 % (2-4); Hematocrit 44.2 % (41-53); Hemoglobin 14.9 g/dL (13.5-17.5); Lymphocytes Absolute Auto 1300 /uL (1100-4500); Mean Corpuscular HGB Conc 33.8 % (30-36); Mean Corpuscular Hemoglobin 29.3 PG (26-34); Mean Corpuscular Volume 86.7 fL (80-100); Monocytes Absolute Auto 700 /uL (0-900); Neutrophils Absolute Auto 3200 /uL (1500-7000); Neutrophils Percent Auto 58.5 % (50-75); Platelet Count 197 X10^3/uL (150-400); Red Cell Distribution Width 13.4 % (11.6-14.8); White Blood Cell Count 5.5 X10^3/uL (4.5-11.0)
[2024-06-04 07:19] LABS: BUN Creatinine Ratio 24.7 (6-22); Blood Urea Nitrogen 40 mg/dL (9-20); Carbon Dioxide 17 mmol/L (22-32); Chloride 108 mmol/L (98-107); Estimated Glomerular Filt Rate 42 mL/min (>60); Glucose 145 mg/dL (80-110); HEMOLYSIS < 15 (0-50); Magnesium 2.3 mg/dL (1.6-2.3); Potassium 3.7 mmol/L (3.4-5.1); Sodium 136 mmol/L (137-145)
[2024-06-04] MEDS: ATORVASTATIN 20 MG TABLET 40 MG PO (09:10)
[2024-06-04] MEDS: ASPIRIN EC 81 MG TABLET PO (09:10)
[2024-06-04] MEDS: LOSARTAN 50 MG TABLET 100 MG PO (09:10)
[2024-06-04] MEDS: CLOPIDOGREL 75 MG TABLET PO (09:11)
[2024-06-04] MEDS: ENOXAPARIN 40 MG/0.4 ML SYRINGE SUBCUT (09:11)
[2024-06-04] MEDS: AMLODIPINE 5 MG TABLET 10 MG PO (09:11)
[2024-06-04] MEDS: INSULIN GLARGINE 100 UNIT/ML 3ML PEN 10 UNIT SUBCUT (09:12)
[2024-06-04] MEDS: INSULIN LISPRO 100 UNIT/ML 3ML VIAL SUBCUT ×4 (12:00→21:01)
--- NOTE | 2024-06-04 12:30 | PT-IP ANOTE ---
Holding Physical Therapy treatment today. There is concern for worsening of his right sided symptoms today. His Son reports Migue is having more difficulty using right UE today. Nursing reports worsening of right LE symptoms requiring two person assist for transfers. Concern that his stroke could be extending. Will continue to follow.
[2024-06-04] MEDS: INSULIN GLARGINE 100 UNIT/ML 3ML PEN SUBCUT (17:30)
--- NOTE | 2024-06-04 18:39 | P.PN_ITS ---
Subjective Subjective Interval history: 84-year-old male with dementia, coronary artery disease, type 2 diabetes, CKD 3 admitted with an acute left hays radiata stroke last evening. Patient reports he is feeling overall reasonably good. Earlier today, his son reported concern that his right arm seemed to be involved in addition to his right leg. also noted some mild slurred speech. However, this afternoon she notes he seems to be doing better. He is much more talkative today and states he feels pretty good. Physical therapy notes he continues to have difficulty with proprioception and recognizing where his right leg is when attempting to mobilize. He denies any difficulty swallowing or speaking. He also denies any difficulty at this point with using his right arm. Exam Vital Signs (past 8 hours): - 06/04/24 12:00 06/04/24 13:00 06/04/24 16:00 Temperature 96.7 F L 97.6 F Pulse Rate 83 82 Respiratory Rate 16 18 Blood Pressure 150/79 H 146/67 H Pulse Oximetry 98 96 96 Oxygen Delivery Method Room Air Oxygen Flow Rate 0 0 0 06/04/24 17:00 Temperature Pulse Rate Respiratory Rate Blood Pressure Pulse Oximetry 96 Oxygen Delivery Method Room Air Oxygen Flow Rate 0 Oxygen Delivery Method Room Air Oxygen Flow Rate 0 Narrative Exam Narrative: GEN: Elderly male, very pleasant, Alert and oriented x 3, NAD HEENT:NC, Face symmetric CHEST: Respiratory excursions symmetric, CTAB CV: RRR, no M/R/G ABD: Soft, NT/ND, BT present in all 4 quadrants, no organomegaly or masses EXTR: warm, well perfused, no C/C/E SKIN: warm and dry, no rash NEURO: Alert and oriented x 3, mildly weak right lower extremity compared to the left, sensation intact throughout, right upper extremity is equal in strength compared to the left, no clumsiness. Cranial nerves are intact and symmetric bilaterally Objective Labs 06/04/24 06:10 06/04/24 06:10 Labs: Laboratory Results - last 24 hr 06/04/24 06:10 WBC 5.5 RBC 5.10 Hgb 14.9 Hct 44.2 MCV 86.7 MCH 29.3 MCHC 33.8 RDW 13.4 Plt Count 197 Neut % (Auto) 58.5 Lymph % (Auto) 24.0 L [place] % (Auto) 12.0 Eos % (Auto) 4.3 H Baso % (Auto) 1.2 Neut # (Auto) 3200 Lymph # (Auto) 1300 [place] # (Auto) 700 Eos # (Auto) 200 Baso # (Auto) 100 Sodium 136 L Potassium 3.7 Chloride 108 H Carbon Dioxide 17 L BUN 40 H Creatinine 1.62 H Estimated GFR 42 L BUN/Creatinine Ratio 24.7 H Glucose 145 H Calcium 9.0 Magnesium 2.3 PFSH Social History household members: spouse Smoking Status: Never smoker alcohol intake: former Assessment & Plan Assessment & Plan narrative: 1. Acute left hays radiata stroke Patient will be on 21 days of dual antiplatelet therapy, followed by aspirin monotherapy. A1c was 11.9% at [facility] during his cardiac workup earlier in the week. LDL was 114 here with total cholesterol of 186, triglycerides of 150, HDL of 42. He will be continued on atorvastatin 40 mg daily. We will work towards better glycemic control as well (blood sugars have ranged from 128-255 in the last 24 hours). Based on his deficits with therapy today, will look at alf at discharge. 2. Diabetes mellitus type 2 Will continue his usual outpatient medications upon dischargeContinue controlled carb diet. Per pharmacy protocol, Jardiance is not on formulary and he will be on Lantus 10 units while he is hospitalized. 3. Coronary artery disease Negative workup at [facility] earlier in the week. Continues on aspirin and statin therapy. He was not placed on Plavix during his most recent hospitalization, but this was reported in his emergency department note. 4. CKD 3 Creatinine stable at 1.62 5. Left shoulder pain X-ray revealed degenerative changes of the left AC and glenohumeral joints. Continue working with PT Code status Full Prophylaxis Lovenox Disposition Pending acceptance to alf facility Time-Based Coding :: [TOTAL MINUTES] spent with patient and on the chart (including review of chart, obtaining history, exam, reviewing outside data, placing orders, documenting exam and treatment plan, and counseling patient) on [DATE]. Quality VTE Deep Vein Thrombosis/Pulmonary Embolism Present on Admission: No
[2024-06-05] VITALS (9 sets, daily range): BP systolic 108–168; BP diastolic 60–88; PULSE 74–87; RESP 16–19; TEMP 35.9–36.4; O2SAT 96–99
[2024-06-05 06:22] LABS: Add Manual Diff / Slide Review NO; Basophils Absolute Auto 100 /uL (0-100); Eosinophils Absolute Auto 300 /uL (0-450); Eosinophils Percent Auto 4.1 % (2-4); Hematocrit 44.8 % (41-53); Hemoglobin 15.2 g/dL (13.5-17.5); Lymphocytes Absolute Auto 1100 /uL (1100-4500); Lymphocytes Percent Auto 14.5 % (25-40); Mean Corpuscular HGB Conc 33.9 % (30-36); Mean Corpuscular Hemoglobin 29.4 PG (26-34); Mean Corpuscular Volume 86.9 fL (80-100); Monocytes Absolute Auto 800 /uL (0-900); Neutrophils Absolute Auto 5300 /uL (1500-7000); Neutrophils Percent Auto 70.4 % (50-75); Platelet Count 205 X10^3/uL (150-400); Red Blood Cell Count 5.16 X10^6/uL (4.5-5.9); Red Cell Distribution Width 13.2 % (11.6-14.8); White Blood Cell Count 7.5 X10^3/uL (4.5-11.0)
[2024-06-05 06:34] LABS: BUN Creatinine Ratio 24.7 (6-22); Blood Urea Nitrogen 40 mg/dL (9-20); Calcium 9.2 mg/dL (8.4-10.2); Carbon Dioxide 19 mmol/L (22-32); Chloride 107 mmol/L (98-107); Estimated Glomerular Filt Rate 42 mL/min (>60); Glucose 130 mg/dL (80-110); HEMOLYSIS < 15 (0-50); Magnesium 2.1 mg/dL (1.6-2.3); Sodium 136 mmol/L (137-145)
--- NOTE | 2024-06-05 07:34 | PM.PN.1 ---
Subjective Subjective Interval history: Summary: 84-year-old male with dementia, coronary artery disease, type 2 diabetes, CKD 3 admitted with an acute left hays radiata stroke. S: He was right arm and right leg weakness have improved dramatically overnight. He was yet to see Physical therapy today. He denies any pain, headache, or dyspnea. He would like to go home. Exam Vital Signs (past 8 hours): - 06/05/24 01:00 06/05/24 04:00 06/05/24 05:00 Temperature 97.1 F L Pulse Rate 74 Respiratory Rate 16 Blood Pressure 168/76 H Pulse Oximetry 97 98 97 Oxygen Delivery Method Room Air Room Air Oxygen Flow Rate 0 Oxygen Delivery Method Room Air Oxygen Flow Rate 0 Narrative Exam Narrative: NAD, alert and oriented. Fluent speech. Lungs are clear, normal rate and effort. Heart is regular, no murmur gallop or rub. Abdomen is soft, non distended. Extremities are free of edema. Right leg: Normal straight leg raise. The right arm has a negative pronator drift today. Normal speech. Objective ECG Impression: Sinus rhythm with occasional premature ventricular complexes Imaging MRI - head: Radiologist's impression: MRI already which did show an acute infarct in the left hays radiata. Labs 06/05/24 05:30 06/05/24 05:30 Labs: Laboratory Results - last 24 hr 06/05/24 05:30 WBC 7.5 RBC 5.16 Hgb 15.2 Hct 44.8 MCV 86.9 MCH 29.4 MCHC 33.9 RDW 13.2 Plt Count 205 Neut % (Auto) 70.4 Lymph % (Auto) 14.5 L [place] % (Auto) 10.0 Eos % (Auto) 4.1 H Baso % (Auto) 1.0 Neut # (Auto) 5300 Lymph # (Auto) 1100 [place] # (Auto) 800 Eos # (Auto) 300 Baso # (Auto) 100 Sodium 136 L Potassium 4.0 Chloride 107 Carbon Dioxide 19 L BUN 40 H Creatinine 1.62 H Estimated GFR 42 L BUN/Creatinine Ratio 24.7 H Glucose 130 H Calcium 9.2 Magnesium 2.1 PFSH Social History household members: spouse Smoking Status: Never smoker alcohol intake: former Assessment & Plan Assessment & Plan narrative: 1. Acute left hays radiata stroke Patient will be on 21 days of dual antiplatelet therapy, followed by aspirin monotherapy. A1c was 11.9% at [facility] during his cardiac workup earlier in the week. LDL was 114 here with total cholesterol of 186, triglycerides of 150, HDL of 42. He will be continued on atorvastatin 40 mg daily. We will work towards better glycemic control as well (blood sugars have ranged from 128-255 in the last 24 hours). Based on his deficits with therapy today, will look at correction at discharge. 2. Diabetes mellitus type 2 Will continue his usual outpatient medications upon dischargeContinue controlled carb diet. Per pharmacy protocol, Jardiance is not on formulary and he will be on Lantus 10 units while he is hospitalized. 3. Coronary artery disease Negative workup at [facility] earlier in the week. Continues on aspirin and statin therapy. He was not placed on Plavix during his most recent hospitalization, but this was reported in his emergency department note. 4. CKD 3 Creatinine stable at 1.62 5. Left shoulder pain X-ray revealed degenerative changes of the left AC and glenohumeral joints. Continue working with PT. PLAN: -Continue DAPT (21 days) -Continue PT/OT -Discharge planning. ELY: 06/06: home vs SNF. Code status Full Prophylaxis Lovenox Time-Based Coding :: [TOTAL MINUTES] spent with patient and on the chart (including review of chart, obtaining history, exam, reviewing outside data, placing orders, documenting exam and treatment plan, and counseling patient) on [DATE]. Quality VTE Deep Vein Thrombosis/Pulmonary Embolism Present on Admission: No
[2024-06-05] MEDS: ASPIRIN EC 81 MG TABLET PO (08:13)
[2024-06-05] MEDS: ATORVASTATIN 20 MG TABLET 40 MG PO (08:13)
[2024-06-05] MEDS: CLOPIDOGREL 75 MG TABLET PO (08:13)
[2024-06-05] MEDS: AMLODIPINE 5 MG TABLET 10 MG PO (08:14)
[2024-06-05] MEDS: INSULIN GLARGINE 100 UNIT/ML 3ML PEN 10 UNIT SUBCUT (08:14)
[2024-06-05] MEDS: LOSARTAN 50 MG TABLET 100 MG PO (08:14)
[2024-06-05] MEDS: ENOXAPARIN 40 MG/0.4 ML SYRINGE SUBCUT (08:14)
[2024-06-05] MEDS: INSULIN LISPRO 100 UNIT/ML 3ML VIAL SUBCUT ×6 (08:16→16:40)
--- NOTE | 2024-06-05 11:44 | PT.IPTN ---
Current Diagnoses Cerebral infarction, unspecified (06/02/24) Physical Therapy Treatment Note M2 PT-IP Current Condition Start: 06/03/24 15:14 Freq: NEEDED Status: Active Protocol: Document 06/03/24 15:04 DLM (Rec: 06/03/24 15:48 DLM [id number]) Physical Therapy Current Condition Current Condition Evaluation Date 06/03/24 Treatment Diagnosis CVA with right LE deficits, impaired gait Onset Date 06/02/24 M3 PT-IP Subjective Start: 06/03/24 15:14 Freq: NEEDED Status: Active Protocol: Document 06/05/24 11:21 KS (Rec: 06/05/24 12:38 KS [id number]) Subjective Physical Therapy Visit Type Type Treatment Note Visit Start Time 11:21 Visit Stop Time 11:44 Number of STORE WAREHOUSE ASSOCIATE Visits 1 Physical Therapy Visit Comments Patient Comments Pt agreeable to work w/ PT. Alert and oriented today. M4 PT-IP Mobility and Gait Start: 06/03/24 15:14 Freq: NEEDED Status: Active Protocol: Document 06/05/24 11:21 KS (Rec: 06/05/24 12:38 KS [id number]) PT-Bed Mobility Assessment Scooting Scooting to Edge of Bed Contact Guard Assistance PT-Transfer Assessment Sit to and From Stand Sit to and from Stand Minimal Assistance,1 Person Assistance,Use of Upper Extremities Equipment Transfer Assistive Device Gait Belt,Front Wheeled Walker Transfers Transfer Destination Bed,Chair Transfer Technique ambulated Transfer Ability Level of Assist Minimal Assistance,Maximum Assistance,1 Person Assistance Comments Mobility Comments Pt doing much better today however still was difficulty coordinating RLE. Performed ankle pumps, quad sets, heel slides and SLR. Able to complete on R side but struggling with coordination. Min A for sup<>sit and CGA for scooting EOB. Pt was able to maintain seated balance EOB. Min A for sit<>stand w/ FWW. Pt performed marching in place , gave cues for pt to track RLE due to R sided deficit and poor coordination. Pt then ambulate ~6 ft to chair w/ FWW and Min to Mod A - has some difficulty turning and needed Mod A and FWW mgmt. After sitting in chair, pt decdied he would rather be in bed. Min A for sit<>stand w/ FWW and Mod A for ambulating back to bed when walking forward however pt turned towards L and could not maintain standing balance and ultimately needed Max A to turn/get back to bed. Min A for sit<>sup. Pt left in chair w/ all needs in reach. Gait Assessment Gait Gait Assistance Required: Minimum Assistance,Moderate Assistance,Maximum Assistance Distance (Feet) 12 Assistive Devices Assistive Device Gait Belt,Front Wheeled Walker Gait Deviations General Gait Pattern Ataxic,Decreased Stride Length ,Decreased Feet Clearance Factors Limiting Gait Function Factors Limiting Gait Function Decreased Activity Tolerance, Decreased Strength,Difficulty Following Directions, Incoordination,Poor Balance Comments Gait Comments Pt Min A when ambulating straight forward and Mod to Max when turning w/ FWW. Easier for pt to turn to R than L. Poor motor control/ coordination of RLE requiring cues and increased assistance to maintain balance. Remains impulsive and high risk of falls. Stair Climbing Assessment Comments Stair Climbing Comments no stairs at home PT-Balance Assessment Sitting Balance and Reactions Static Sitting Balance Ability Fair Dynamic Sitting Balance Ability Fair Standing Balance and Reactions Static Standing Balance Ability Fair Dynamic Standing Balance Ability Fair Device Used FWW M5 PT-IP Objective Assessments Start: 06/03/24 15:14 Freq: NEEDED Status: Active Protocol: Document 06/03/24 15:04 DLM (Rec: 06/03/24 15:48 DLM [id number]) Orientation Orientation/Cognition Level of Alertness Alert Orientation Name Safety Awareness Decreased Safety Awareness Memory Description Short Term Impaired Comments very poor Short term memory with pt asking 4 times during this visit why he is here and if he has to stay he has known hx of Alzheimers dementia Gross Range of Motion Upper Extremity ROM Assessment Within Functional Limits Lower Extremity ROM Assessment Within Functional Limits Strength Upper Extremity Strength Assessment Within Functional Limits Lower Extremity Strength Assessment Right Impaired Hip hip flex 4/5 Knee 4+/5 Ankle DF 4+/5 Comments Strength Comments quality of right LE movements are impaired with decreased motor control Coordination Assessment Gross Coordination Gross Coordination Impaired Assessment Foot Tapping Test Minimal Impairment Coordination Comments right LE impairments are worse in knee and hip than ankle Sensation Assessment Sensation Proprioception (Position) Impaired Comments Sensation Comments he reports no numbness, proprioception impaired in right LE Muscle Tone Muscle Tone WNL Yes Other Assessments Other Other Assessments right LE inattention this visit M6 PT-IP Treatment Start: 06/03/24 15:14 Freq: NEEDED Status: Active Protocol: Document 06/05/24 11:21 KS (Rec: 06/05/24 12:38 KS [id number]) Physical Therapy Treatment Exercises Exercises Ankle Pumps,Quad Sets,Heel Slides,Straight Leg Raises M7 PT-IP Assessment and Plan Start: 06/03/24 15:14 Freq: NEEDED Status: Active Protocol: Document 06/05/24 11:21 KS (Rec: 06/05/24 12:38 KS [id number]) PT Summary Assessment and Plan Potential Rehabilitation Potential Good Summary Impairments Strength,Balance,Coordination, Sensation,Cognition,Bed Mobility,Transfers,Gait, Activity Tolerance Progress Towards Goals Slow Progress due to Medical Issues Assessment Summary Pt continues to have coordination and proprioceptive impairments and needs up to Max A when turning using FWW. He fatigues quickly and deficits become more prominent as he fatigues. He required Max A when ambulating from chair to bed due to difficulty advancing RLE and inability to maintain balance. He is not safe to discharge home at this time and is at very high fall risk. Pt will need SNF rehab to assist with his recovery. Goals Bed Mobility Goal Independent Transfer Goal Standby Assistance,Front Wheeled Walker Gait Goal Standby Assistance,Front Wheel Walker Gait Distance 150 feet Days to Meet Goals 7 Frequency of Treatment Frequency Of Treatment Once a Day Treatment Plan Physical Therapy Treatment Plan Bed Mobility Training,Transfer Training,Gait Training, Therapeutic Exercise,Balance Retraining,Discharge Planning, Neuromuscular Re-ed Precautions Other Precautions high fall risk Alzheimers dementia Recommendations To Nursing Amount of Assist Needed 1 Person Assist Discharge Recommendations PT Discharge Recommendations SNF Rehab Other Discharge Recommendations high fall risk Transportation Needs at Discharge Private Vehicle - PT assist 1P
--- NOTE | 2024-06-05 11:47 | CM.DPNOTE ---
DCP note PLUMBER reviewed EMR PT continues to rec SNF. per nursing staff, still requiring a fair bit of assistance with mobility. PLUMBER met with pt, spouse, and son in room. introduced self and role. spouse/son preference is for pt to dc to SNF for short term rehab. pt begrudgingly agreeable. preference is to dc to [facility] in [place] pending ins auth. could transport if needed. PLUMBER answered questions to best of ability. PLUMBER spoke with Amalia at [facility], agreed to review and report they can get auth often with [employer] [facility]. PLUMBER emailed initial referral information. PASRR needed P: anticipate dc to SNF pending acceptance/ins auth. Mon vs Tues. CM team will continue to follow closely for DCP coordination NATALEE Dunbar
[2024-06-05] MEDS: INSULIN GLARGINE 100 UNIT/ML 3ML PEN SUBCUT (16:41)
[2024-06-06 08:00] VITALS: BP 166/84; PULSE 75; RESP 16; TEMP 36.2; O2SAT 98
[2024-06-06] MEDS: ENOXAPARIN 40 MG/0.4 ML SYRINGE SUBCUT (08:37)
[2024-06-06 08:38] VITALS: BP 166/84
[2024-06-06] MEDS: ASPIRIN EC 81 MG TABLET PO (08:38)
[2024-06-06] MEDS: AMLODIPINE 5 MG TABLET 10 MG PO (08:38)
[2024-06-06] MEDS: LOSARTAN 50 MG TABLET 100 MG PO (08:38)
[2024-06-06] MEDS: ATORVASTATIN 20 MG TABLET 40 MG PO (08:38)
[2024-06-06] MEDS: CLOPIDOGREL 75 MG TABLET PO (08:38)
[2024-06-06] MEDS: INSULIN GLARGINE 100 UNIT/ML 3ML PEN 12 UNIT SUBCUT (08:39)
[2024-06-06] MEDS: INSULIN LISPRO 100 UNIT/ML 3ML VIAL SUBCUT ×7 (08:40→21:19)
[2024-06-06 08:52] VITALS: O2SAT 98
--- NOTE | 2024-06-06 13:48 | CM.DPC ---
DCP SNF Planning Cont: Per MD, pt medically stable to d/c to SNF once auth obtained. PT/OT, SNF. SW confirmed with [facility] that their DNS did final review this morning Mon 06/06 and they can accept the patient and submitted for auth today 06/06 for [employer] MCR. They can accept as soon as auth obtained. 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 PASRR done. Plan; SW to follow for plan of d/c to [facility] once [employer] auth obtained. NATALEE Gonzáles
--- NOTE | 2024-06-06 14:56 | OT.IP.TRT ---
Current Diagnoses Cerebral infarction, unspecified (06/02/24) Occupational Therapy Treatment Note M2 OT-IP Current Condition Start: 06/03/24 12:52 Freq: Status: Active Protocol: Document 06/03/24 12:52 [facility] (Rec: 06/03/24 13:14 [facility] [id number]) Occupational Therapy Current Condition Current Condition Evaluation Date 06/03/24 Treatment Diagnosis S/P CVA rLeft Bond Radiata M3 OT- IP Subjective and Pain Start: 06/03/24 12:52 Freq: Status: Active Protocol: Document 06/06/24 15:06 CGR (Rec: 06/06/24 15:17 CGR [id number]) OT- Subjective Occupational Therapy Visit Type Type Treatment Note Visit Start Time 14:33 Visit Stop Time 14:56 Notes Pt's present throughout. Occupational Therapy Visit Comments Patient Comments I feel pretty normal, my R leg is a little weaker. OT Pain Assessment Pain When Pain Assessed At Rest Pain Present Pain Present Denied Pain M4 OT- IP ADL's Start: 06/03/24 12:52 Freq: Status: Active Protocol: Document 06/06/24 15:06 CGR (Rec: 06/06/24 15:17 CGR [id number]) OT [id number] Comments OT Self-Feeding Comments not meal time OT ADL-Grooming Comments OT Grooming Comments pt declined to perform OT ADL-Oral Care Comments Oral Care Comments pt declined to perform OT ADL-Dressing Comments OT Dressing Comments pt declined to perform OT ADL-Toileting General Evaluation Toileting Ability Minimal Assistance Areas Needing Assistance Manage Clothing Comments OT Toileting Comments sitting on toielt for uriantion, assist to get pants down. OT ADL-Bathing Comments OT Bathing Comments not performed M5 OT- IP IADL's Start: 06/03/24 12:52 Freq: Status: Active Protocol: Document 06/03/24 12:52 [facility] (Rec: 06/03/24 13:14 [facility] [id number]) OT-Instrumental Activities of Daily Living Home Safety Awareness Awareness of Need for Assistance at Home Decreased Awareness Ability to Problem Solve Emergency Unable to Problem Solve Situations Medication Management Medication Management Caregiver Administers Money Management Money Management Caregiver Provides Assistance Meal Preparation Meal Preparation Caregiver Provides Assist Aging Room Operator Aging Room Operator Caregiver Provides Assist Driving Driving Concerns Identified Regarding Safety M6 OT- IP Functional Cognition Start: 06/03/24 12:52 Freq: Status: Active Protocol: Document 06/06/24 15:06 CGR (Rec: 06/06/24 15:17 CGR [id number]) Cognitive Factors Limiting Selfcare Function Cognitive Ability Level of Alertness Alert,Confusional State Patient Orientation Name Attention Span Ability Capable of Focused Attention, Capable of Sustained Attention Ability to Follow Commands Able to Follow One Step Commands with Increased Time, Able to Follow One Step Commands with Repetition Cognitive Comments Cognitive Assessment Comments Pt with dementia but conversates easily M7 OT- IP Mobility and Balance Start: 06/03/24 12:52 Freq: Status: Active Protocol: Document 06/06/24 15:06 CGR (Rec: 06/06/24 15:17 CGR [id number]) OT- Bed Mobility Assessment Supine to Sit Supine to Sit Assist Contact Guard Assistance, Bedrails Scooting Scooting to Edge of Bed Standby Assistance OT-Transfer Assessment Sit to and From Stand Sit to and from Stand Minimal Assistance Transfers Transfer Ability Moderate Assistance,Maximum Assistance,1 Person Assistance Technique Transfer Destination Bed,Chair,Toilet Transfer Technique Stand Step Pivot Devices Transfer Assistive Devices Gait Belt,Front Wheeled Walker OT- Gait Assessment Gait Gait Assistance Required: Moderate Assistance,Maximum Assistance,1 Person Assist Assistive Devices Assistive Device Gait Belt,Front Wheeled Walker Comments Gait Ability Comments Pt initially did well with steps to the bathroom needing reminders to lift the RLE and not drag it. Pt fatigued close to the toilet and need significantly more assist for turning and sitting on toielt safely. Pt then stood and ambulated to the chair which was brought right outseid of the bathroom given patients fatigue with getting to the toilet. Pt did well initially but needed more assist with turning to get into the chair. Pt needs VS to properly move the RLE rather than drag it. OT- Balance Assessment Sitting Balance and Reactions Static Sitting Balance Ability Good Dynamic Sitting Balance Ability Good M8 OT- IP Objective Assessments Start: 06/03/24 12:52 Freq: Status: Active Protocol: Document 06/03/24 12:52 CCC (Rec: 06/03/24 13:14 CCC [id number]) OT Gross Range of Motion Upper Extremity Range of Motion Assessment Within Functional Limits OT Strength Comments Strength Comments RUE 4/5 to 4-/5 and LUE 4+/5 OT- Coordination Assessment Upper Extremity Finger to Nose Test Within Functional Limits Finger Tapping Test Right UE Impaired Comments Coordination Comments Increased time to jcarlos his watch but able to do with right hand. OT Sensation Assessment Comments Summary Comments Intact for light touch with BUE. M9 OT- IP Assessment and Plan Start: 06/03/24 12:52 Freq: Status: Active Protocol: Document 06/06/24 15:06 CGR (Rec: 06/06/24 15:17 CGR [id number]) OT Summary Assessment and Plan Potential Rehabilitation Potential Good Analytic Complexity at Evaluation Moderate Summary OT Impairments Strength,Balance,Coordination, Functional Cognition, Functional Mobility,Self- Feeding,Grooming,Dressing, Toileting,Bathing,Toilet Transfers,Shower Transfers, Activity Tolerance Progress Towards Goals Slow Progress due to Medical Issues,Slow Progress due to Activity Tolerance,Slow Progress due to Cognition Assessment Summary Pt here due to CVA and main barriers are decreased coordination with RLE>RUE and also weakness. Pt is very unsteady on his feet and now needing use of a FWW and extensive assist. Pt appears unaware of the extent of his RLE weakness and needs lots of VC to prevent pt from dragging his RLE. Pt declined other activity and was left sitting up in chair at end of session, call button within reach and all needs at time met. Goals Self-Feeding Goal Independent Grooming Goal Independent Dressing Goal Independent Toileting Goal Independent Bathing Goal Standby Assistance Toilet Transfer Goal Independent Shower Transfer Goal Standby Assistance Days to Meet Goals 25 Frequency of Treatment Other frequency 5x/week Treatment Plan OT Treatment Plan ADL Training,Functional Mobility,Patient/Family Education,Discharge Planning Discharge Recommendations OT Discharge Recommendations SNF Rehab Transportation Needs at Discharge Private Vehicle,Wheelchair/ Cabulance
--- NOTE | 2024-06-06 17:06 | PT-IP ANOTE ---
PT checks on pt a couple of times this afternoon. On final attempt, he is eating supper. Con't PT efforts next date.
--- NOTE | 2024-06-06 17:09 | PC.NURSE ---
Assuming care of patient for rest of day shift, this RN checked on patient. Assisted patient with urinal and set him up for dinner. His is at bedside. Patient denies complaint, pleasant and cooperative. Bed alarm on for safety, with call light within reach.
--- NOTE | 2024-06-06 18:08 | P.PN_ITS ---
Subjective Subjective Interval history: S: Slow improvement. Exam Vital Signs (past 8 hours): Oxygen Delivery Method Room Air Oxygen Flow Rate 0 Narrative Exam Narrative: NAD, alert and oriented. Fluent speech. Lungs are clear, normal rate and effort. Heart is regular, no murmur gallop or rub. Abdomen is soft, non distended. Extremities are free of edema. Objective Labs 06/05/24 05:30 06/05/24 05:30 [facility] Social History household members: spouse Smoking Status: Never smoker alcohol intake: former Assessment & Plan Assessment & Plan narrative: 1. Acute left hays radiata stroke , present on admission and active. Patient will be on 21 days of dual antiplatelet therapy, followed by aspirin monotherapy. A1c was 11.9% at [facility] during his cardiac workup earlier in the week. LDL was 114 here with total cholesterol of 186, triglycerides of 150, HDL of 42. He will be continued on atorvastatin 40 mg daily. We will work towards better glycemic control as well (blood sugars have ranged from 128-255 in the last 24 hours). Based on his deficits with therapy today, will look at care home at discharge. 2. Diabetes mellitus type 2 , present on admission and stable. Will continue his usual outpatient medications upon dischargeContinue controlled carb diet. Per pharmacy protocol, Jardiance is not on formulary and he will be on Lantus 10 units while he is hospitalized. 3. Coronary artery disease, present on admission and stable. Negative workup at [facility] earlier in the week. Continues on aspirin and statin therapy. He was not placed on Plavix during his most recent hospitalization, but this was reported in his emergency department note. 4. CKD 3 , present on admission and stable. Creatinine stable at 1.62 5. Left shoulder pain X-ray revealed degenerative changes of the left AC and glenohumeral joints. Continue working with PT. PLAN: Continue ASA and Plavix. Discharge planning. Time-Based Coding :: [TOTAL MINUTES] spent with patient and on the chart (including review of chart, obtaining history, exam, reviewing outside data, placing orders, documenting exam and treatment plan, and counseling patient) on [DATE]. Quality VTE Deep Vein Thrombosis/Pulmonary Embolism Present on Admission: No
[2024-06-06 19:00] VITALS: BP 164/84; PULSE 98; RESP 20; TEMP 36.6; O2SAT 98
--- NOTE | 2024-06-06 22:54 | PC.WOUNDPHOT ---
^ valente & selvin placed. blanchable.
[2024-06-07 07:00] VITALS: BP 143/85; PULSE 80; RESP 16; TEMP 36.2; O2SAT 93; O2SAT 99
[2024-06-07 08:18] VITALS: BP 142/85; PULSE 80
[2024-06-07] MEDS: LOSARTAN 50 MG TABLET 100 MG PO (08:18)
[2024-06-07] MEDS: ASPIRIN EC 81 MG TABLET PO (08:18)
[2024-06-07] MEDS: CLOPIDOGREL 75 MG TABLET PO (08:18)
[2024-06-07] MEDS: ATORVASTATIN 20 MG TABLET 40 MG PO (08:18)
[2024-06-07] MEDS: ENOXAPARIN 40 MG/0.4 ML SYRINGE SUBCUT (08:19)
[2024-06-07] MEDS: INSULIN LISPRO 100 UNIT/ML 3ML VIAL SUBCUT ×7 (08:19→21:04)
[2024-06-07] MEDS: AMLODIPINE 5 MG TABLET 10 MG PO (08:19)
[2024-06-07] MEDS: INSULIN GLARGINE 100 UNIT/ML 3ML PEN 15 UNIT SUBCUT (08:20)
--- NOTE | 2024-06-07 09:30 | OT.IP.TRT ---
Current Diagnoses Cerebral infarction, unspecified (06/02/24) Occupational Therapy Treatment Note M2 OT-IP Current Condition Start: 06/03/24 12:52 Freq: Status: Active Protocol: Document 06/03/24 12:52 [facility] (Rec: 06/03/24 13:14 [facility] [id number]) Occupational Therapy Current Condition Current Condition Evaluation Date 06/03/24 Treatment Diagnosis S/P CVA rLeft Bond Radiata M3 OT- IP Subjective and Pain Start: 06/03/24 12:52 Freq: Status: Active Protocol: Document 06/07/24 09:31 [facility] (Rec: 06/07/24 09:38 [facility] [id number]) OT- Subjective Occupational Therapy Visit Type Type Treatment Note Visit Start Time 08:55 Visit Stop Time 09:23 Occupational Therapy Visit Comments Patient Comments Pt not wanting to get out of bed and needing encouragement to try initiate his movements. Patient/Caregiver Goals To go home. Pt decline getting a shower of doing any hygiene needs at this time. OT Pain Assessment Pain When Pain Assessed At Rest Pain Present Pain Present Denied Pain M4 OT- IP ADL's Start: 06/03/24 12:52 Freq: Status: Active Protocol: Document 06/06/24 15:06 [facility] (Rec: 06/06/24 15:17 [facility] [id number]) OT [id number] Comments OT Self-Feeding Comments not meal time OT ADL-Grooming Comments OT Grooming Comments pt declined to perform OT ADL-Oral Care Comments Oral Care Comments pt declined to perform OT ADL-Dressing Comments OT Dressing Comments pt declined to perform OT ADL-Toileting General Evaluation Toileting Ability Minimal Assistance Areas Needing Assistance Manage Clothing Comments OT Toileting Comments sitting on toielt for uriantion, assist to get pants down. OT ADL-Bathing Comments OT Bathing Comments not performed M5 OT- IP IADL's Start: 06/03/24 12:52 Freq: Status: Active Protocol: Document 06/03/24 12:52 [facility] (Rec: 06/03/24 13:14 [facility] [id number]) OT-Instrumental Activities of Daily Living Home Safety Awareness Awareness of Need for Assistance at Home Decreased Awareness Ability to Problem Solve Emergency Unable to Problem Solve Situations Medication Management Medication Management Caregiver Administers Money Management Money Management Caregiver Provides Assistance Meal Preparation Meal Preparation Caregiver Provides Assist Harness Builder Harness Builder Caregiver Provides Assist Driving Driving Concerns Identified Regarding Safety M6 OT- IP Functional Cognition Start: 06/03/24 12:52 Freq: Status: Active Protocol: Document 06/06/24 15:06 [facility] (Rec: 06/06/24 15:17 [facility] [id number]) Cognitive Factors Limiting Selfcare Function Cognitive Ability Level of Alertness Alert,Confusional State Patient Orientation Name Attention Span Ability Capable of Focused Attention, Capable of Sustained Attention Ability to Follow Commands Able to Follow One Step Commands with Increased Time, Able to Follow One Step Commands with Repetition Cognitive Comments Cognitive Assessment Comments Pt with dementia but conversates easily M7 OT- IP Mobility and Balance Start: 06/03/24 12:52 Freq: Status: Active Protocol: Document 06/07/24 09:31 [facility] (Rec: 06/07/24 09:38 [facility] [id number]) OT- Bed Mobility Assessment Supine to Sit Supine to Sit Assist Standby Assistance,Contact Guard Assistance,Minimal Assistance,Moderate Assistance OT-Transfer Assessment Sit to and From Stand Sit to and from Stand Minimal Assistance Devices Transfer Assistive Devices Gait Belt,Front Wheeled Walker Comments Mobility Comments Pt not able to get up from supine and trying to use momentum to get into long sitting. Pt needing MODA to get his trunk upright. Able to go over different option to get up by use of bed rail to get up after 5 times able to master it with heavy use of bed rail to assist. Then took away the bed rail and pt practiced over and over again starting with assist from therapist and slowly decreasing assist. At the end of the session pt able to get up from the bed on his own with VC. Pt able to stand with DANAY and take a few side steps to the head of the bed with DANAY with FWW. Pt's still buckling with rLE. OT- Balance Assessment Sitting Balance and Reactions Static Sitting Balance Ability Good Dynamic Sitting Balance Ability Good Standing Balance and Reactions Static Standing Balance Ability Poor Dynamic Standing Balance Ability Poor M8 OT- IP Objective Assessments Start: 06/03/24 12:52 Freq: Status: Active Protocol: Document 06/03/24 12:52 [facility] (Rec: 06/03/24 13:14 [facility] [id number]) OT Gross Range of Motion Upper Extremity Range of Motion Assessment Within Functional Limits OT Strength Comments Strength Comments RUE 4/5 to 4-/5 and LUE 4+/5 OT- Coordination Assessment Upper Extremity Finger to Nose Test Within Functional Limits Finger Tapping Test Right UE Impaired Comments Coordination Comments Increased time to jcarlos his watch but able to do with right hand. OT Sensation Assessment Comments Summary Comments Intact for light touch with BUE. M9 OT- IP Assessment and Plan Start: 06/03/24 12:52 Freq: Status: Active Protocol: Document 06/07/24 09:31 [facility] (Rec: 06/07/24 09:38 [facility] [id number]) OT Summary Assessment and Plan Potential Rehabilitation Potential Good Analytic Complexity at Evaluation Moderate Summary OT Impairments Strength,Balance,Coordination, Functional Cognition, Functional Mobility,Self- Feeding,Grooming,Dressing, Toileting,Bathing,Toilet Transfers,Shower Transfers, Activity Tolerance Progress Towards Goals Slow Progress due to Medical Issues,Slow Progress due to Activity Tolerance,Slow Progress due to Cognition Assessment Summary Pt able to participate i bed mobility practice to work on control of his trunk and BUE/ BLE. Pt able to get up form the bed after continuous practice for technique. Pt to go to skilled rehab when medically stable. Goals Self-Feeding Goal Independent Grooming Goal Independent Dressing Goal Independent Toileting Goal Independent Bathing Goal Standby Assistance Toilet Transfer Goal Independent Shower Transfer Goal Standby Assistance Days to Meet Goals 25 Frequency of Treatment Other frequency 5x/week Treatment Plan OT Treatment Plan ADL Training,Functional Mobility,Patient/Family Education,Discharge Planning Discharge Recommendations OT Discharge Recommendations SNF Rehab Transportation Needs at Discharge Private Vehicle,Wheelchair/ Cabulance
--- NOTE | 2024-06-07 11:15 | PT.IPTN ---
Current Diagnoses Cerebral infarction, unspecified (06/02/24) Physical Therapy Treatment Note M2 PT-IP Current Condition Start: 06/03/24 15:14 Freq: NEEDED Status: Active Protocol: Document 06/03/24 15:04 DLM (Rec: 06/03/24 15:48 D[facility] [id number]) Physical Therapy Current Condition Current Condition Evaluation Date 06/03/24 Treatment Diagnosis CVA with right LE deficits, impaired gait Onset Date 06/02/24 M3 PT-IP Subjective Start: 06/03/24 15:14 Freq: NEEDED Status: Active Protocol: Document 06/07/24 11:15 DLM (Rec: 06/07/24 11:45 DL [id number]) Subjective Physical Therapy Visit Type Type Treatment Note Visit Start Time 10:30 Visit Stop Time 11:15 Notes 45 min 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 Therapy Pain Assessment Pain Present Pain Present Denied Pain M4 PT-IP Mobility and Gait Start: 06/03/24 15:14 Freq: NEEDED Status: Active Protocol: Document 06/07/24 11:15 DLM (Rec: 06/07/24 11:45 DL [id number]) PT-Bed Mobility Assessment Rolling Type of Rolling Bilateral Level of Assist Minimal Assistance Supine to Sit Supine to Sit Minimal Assistance Sit to Supine Sit to Supine Minimal Assistance Scooting Scooting to Edge of Bed Contact Guard Assistance PT-Transfer Assessment Sit to and From Stand Sit to and from Stand Minimal Assistance,Use of Upper Extremities Equipment Transfer Assistive Device Gait Belt,Front Wheeled Walker Transfers Transfer Destination Bed,Chair,Bedside Commode Transfer Technique Stand Step Pivot Transfer Ability Level of Assist Moderate Assistance,Use of Upper Extremities Comments Mobility Comments He needs frequent verbal cues to attend to right LE to decrease buckling of right knee with weight bearing as well as cues to go slowly. Pt up to bedside commode to urinate. Pt up to recliner for exercises. He requested back to bed to rest. Intermittent right LE and trunk extension pattern occurs when trying to roll in bed that interferes with functional movements. Gait Assessment Gait Gait Assistance Required: Moderate Assistance Distance (Feet) 2 Assistive Devices Assistive Device Gait Belt,Front Wheeled Walker Gait Deviations General Gait Pattern Ataxic,Decreased Stride Length ,Decreased Feet Clearance Factors Limiting Gait Function Factors Limiting Gait Function Decreased Activity Tolerance, Decreased Strength,Difficulty Following Directions, Incoordination,Poor Balance Comments Gait Comments impaired motor control right LE with intermittent buckling during weight bearing and irregular placement of his foot during stepping, ataxia during swing phase of gait Stair Climbing Assessment Comments Stair Climbing Comments no stairs at home PT-Balance Assessment Comments Other Balance Tests/Deviations/Treatment he wanted to return to bed : after activity; not stay up in chair. He is able to demonstrate erect posture sitting in recliner and on bedside commode with bilateral UE support this visit Functional Assessments Functional Tests 5 Times Sit to Stand use of FWW, needs bilateral UE assist, 2x 5 reps M5 PT-IP Objective Assessments Start: 06/03/24 15:14 Freq: NEEDED Status: Active Protocol: Document 06/07/24 11:15 DL (Rec: 06/07/24 11:45 DL [id number]) Orientation Orientation/Cognition Level of Alertness Alert Orientation Name Language Function Ability No Deficits Noted Safety Awareness Decreased Safety Awareness Memory Description Short Term Impaired Comments very poor short term memory, his able to follow instructions, cooperative, can communicate his needs Known hx Alzheimers dementia Strength Comments Strength Comments right LE functional weakness, significant fatigue with straight leg raise during 10 reps, sidleying hip abduction strength 2+/5 Coordination Assessment Gross Coordination Gross Coordination Impaired Assessment Finger to Nose Test Minimal Impairment Pronation/Supination Test Minimal Impairment Foot Tapping Test Minimal Impairment Heel on Sosa Test Moderate Impairment Coordination Comments right UE and LE coordination impairments, worse with long level movements, LE worse than UE Sensation Assessment Sensation Gross Sensation Right UE Impaired,Right LE Impaired Proprioception (Position) Impaired Comments Sensation Comments proprioceptive impairment right UE and LE with LE more effected, no numbness reported by pt Muscle Tone Muscle Tone WNL Yes Other Assessments Other Other Assessments right inattention LE more than UE M6 PT-IP Treatment Start: 06/03/24 15:14 Freq: NEEDED Status: Active Protocol: Document 06/07/24 11:15 DLM (Rec: 06/07/24 11:45 DL [id number]) Physical Therapy Treatment Exercises Exercises Ankle Pumps,Heel Slides, Straight Leg Raises,Seated Knee Flexion/Extension Education Education Provided Safety Other Treatments Other Treatment Performed His is present for part of this treatment session. Educated pt regarding his deficits. Exercises: (in addition to above) x 10 reps each, bilateral for motor control retraining Supine shoulder flexion Finger to nose activity Sidelying hip abduction Seated hip flexion Bridging M7 PT-IP Assessment and Plan Start: 06/03/24 15:14 Freq: NEEDED Status: Active Protocol: Document 06/07/24 11:15 DLM (Rec: 06/07/24 11:45 DLM [id number]) PT Summary Assessment and Plan Summary Impairments Strength,Balance,Coordination, Sensation,Cognition,Bed Mobility,Transfers,Gait, Activity Tolerance Progress Towards Goals Slow Progress due to Medical Issues Assessment Summary Migue is alert and resting in bed. He shows good participate in Physical Therapy treatment . He fatigues with activity. He continues to have right sided impairments from his CVA . His impairments are the greatest with motor control, coordination and proprioception. He has mild muscle weakness. His impairments are more severe in his LE and mild in his UE. He does well with frequent verbal cues during transfers and mobility to increase his attention to right side and decrease his fall risk. When he tries to use automatic movements he decreased functional use of his right LE . He continues to struggle with bucking right LE with weight bearing and difficultly with safe placement of his foot with stepping. Continue to recommend SNF rehab at discharge to assist with his functional recovery after his CVA. His will need a lot of repetition of training to manage his impaired memory. Goals Bed Mobility Goal Independent Transfer Goal Standby Assistance,Front Wheeled Walker Gait Goal Standby Assistance,Front Wheel Walker Gait Distance 150 feet Days to Meet Goals 7 Frequency of Treatment Frequency Of Treatment Once a Day Treatment Plan Physical Therapy Treatment Plan Bed Mobility Training,Transfer Training,Gait Training, Therapeutic Exercise,Balance Retraining,Discharge Planning, Neuromuscular Re-ed Precautions Other Precautions high fall risk Alzheimers dementia Recommendations To Nursing Amount of Assist Needed 1 Person Assist,2 Person Assist Discharge Recommendations PT Discharge Recommendations SNF Rehab Other Discharge Recommendations high fall risk Transportation Needs at Discharge Private Vehicle - PT assist 1
--- NOTE | 2024-06-07 12:23 | CM.DPC ---
DCP Cont. Reviewed EMR and team rounds for status updates. Milagros confirms that they still do not have the [employer] auth for SNF rehab. Called pt's and left a message that this will likely come in either late this afternoon or tomorrow am, so will update her in the morning re: likely d/c to [facility] tomorrow.
--- NOTE | 2024-06-07 12:26 | PM.PN.1 ---
Subjective Subjective Interval history: Summary: 84-year-old male with dementia, coronary artery disease, type 2 diabetes, CKD 3 admitted with an acute left hays radiata stroke. He has improving right arm and leg Strength was very unsteady on his feet. We are still waiting for insurance authorization for [facility]. Subjective: He was doing well. His strength is improving. He denies any issues with anorexia, chest pain, or dyspnea. Exam Vital Signs (past 8 hours): - 06/07/24 07:00 06/07/24 07:00 06/07/24 08:18 Temperature 97.2 F L Pulse Rate 80 80 Respiratory Rate 16 Blood Pressure 143/85 H 142/85 H Pulse Oximetry 99 93 Oxygen Delivery Method Room Air Oxygen Flow Rate 0 0 Oxygen Delivery Method Room Air Oxygen Flow Rate 0 Narrative Exam Narrative: NAD, alert and oriented. Fluent speech. Lungs are clear, normal rate and effort. Heart is regular, no murmur gallop or rub. Abdomen is soft, non distended. Extremities are free of edema. Objective ECG Impression: Sinus rhythm with occasional premature ventricular complexes Imaging MRI - head: Radiologist's impression: acute infarct in the left hays radiata. Labs 06/05/24 05:30 06/05/24 05:30 [facility] Social History household members: spouse Smoking Status: Never smoker alcohol intake: former Assessment & Plan Assessment & Plan narrative: 1. Acute left hays radiata stroke , present on admission and active. Patient will be on 21 days of dual antiplatelet therapy, followed by aspirin monotherapy. A1c was 11.9% at [facility] during his cardiac workup earlier in the week. LDL was 114 here with total cholesterol of 186, triglycerides of 150, HDL of 42. He will be continued on atorvastatin 40 mg daily. We will work towards better glycemic control as well (blood sugars have ranged from 128-255 in the last 24 hours). Based on his deficits with therapy today, will look at correction at discharge. 2. Diabetes mellitus type 2 , present on admission and stable. Will continue his usual outpatient medications upon dischargeContinue controlled carb diet. Per pharmacy protocol, Jardiance is not on formulary and he will be on Lantus 10 units while he is hospitalized. 3. Coronary artery disease, present on admission and stable. Negative workup at [facility] earlier in the week. Continues on aspirin and statin therapy. He was not placed on Plavix during his most recent hospitalization, but this was reported in his emergency department note. 4. CKD 3 , present on admission and stable. Creatinine stable at 1.62 5. Left shoulder pain X-ray revealed degenerative changes of the left AC and glenohumeral joints. Continue working with PT. PLAN: -Continue DAPT (21 days), Atorvastatin. - Optimize glycemic control. -Continue PT/OT -Discharge planning. ELY: 06/07-2: SNF. Awaiting insurance approval. Time-Based Coding :: [TOTAL MINUTES] spent with patient and on the chart (including review of chart, obtaining history, exam, reviewing outside data, placing orders, documenting exam and treatment plan, and counseling patient) on [DATE]. Quality VTE Deep Vein Thrombosis/Pulmonary Embolism Present on Admission: No
[2024-06-07 20:00] VITALS: BP 155/82; PULSE 73; RESP 18; TEMP 36.3; O2SAT 94
[2024-06-07 20:30] VITALS: BP 157/83; PULSE 76; RESP 18; O2SAT 96
[2024-06-08 07:00] VITALS: O2SAT 95
--- NOTE | 2024-06-08 07:33 | PC.NURSE ---
At 2019 patient's bed alarm went off, and no staff were available close enough to respond in time to prevent patient from exiting bed.This Route Inspector along with the SERVICE LIAISON REPRESENTATIVE were in another patient's room who required assist of two, and the door was closed for patient privacy. Miranda MAURER, responded to bed alarm and found patient on floor next to bed, holding onto the side of the bed. The patient stated he slid out of bed and landed on his buttocks. Patient denied hitting his head, patient denied any pain, able to move all extremities, no apparent injuries. Leslie, coordinator responded to room and assisted. Staff returned patient to bed using the mechanical lift. Full assessment done. Patient is very confused at baseline, unable to comprehend use of call light, and impulsive. No change in neuro status. VSS, NIHSS 3, BG 219, skin with no new bruising, no apparent injuries. Dr Briceno notified of above, no new orders. Patient had called his , Clifford, and this administrative underwriter spoke with patient's and notified her of the above incident. Patient continued to try to get OOB without assist, setting off bed alarm several more times. Staff close by and responded, preventing any further falls.
[2024-06-08 08:00] VITALS: BP 134/74; PULSE 72; RESP 16; TEMP 36.2; O2SAT 97
[2024-06-08] MEDS: INSULIN GLARGINE 100 UNIT/ML 3ML PEN 15 UNIT SUBCUT (08:16)
[2024-06-08] MEDS: INSULIN LISPRO 100 UNIT/ML 3ML VIAL SUBCUT ×4 (08:16→12:01)
[2024-06-08 08:17] VITALS: BP 134/74; PULSE 70
[2024-06-08] MEDS: ASPIRIN EC 81 MG TABLET PO (08:17)
[2024-06-08] MEDS: LOSARTAN 50 MG TABLET 100 MG PO (08:17)
[2024-06-08] MEDS: ATORVASTATIN 20 MG TABLET 40 MG PO (08:17)
[2024-06-08] MEDS: CLOPIDOGREL 75 MG TABLET PO (08:17)
[2024-06-08] MEDS: ENOXAPARIN 40 MG/0.4 ML SYRINGE SUBCUT (08:18)
[2024-06-08] MEDS: AMLODIPINE 5 MG TABLET 10 MG PO (08:18)
--- NOTE | 2024-06-08 08:59 | P.DS_ITS ---
History of Present Illness History of Present Illness Date Patient Seen: 06/08/24 Time Patient Seen: 08:59 Chief complaint: R leg weakness Narrative: This is an 84-year-old male with a past medical history of dementia, coronary artery disease, type 2 diabetes, CKD stage 3 who was just recently admitted to [facility] but left against medical advice 2 days ago for currently unclear reasons, but the patient states this was due to inability to get some sort of testing done. He was doing okay at home but this morning reported that his right leg gave out and he was not moving it well. He denies any current complaints, thinking that his symptoms had largely resolved. He denied any current numbness, tingling, or weakness, though he did not try and stand on it since admission. He also continues to complain of left-sided shoulder pain that is worse with movement. He states that this is the pain that he was evaluated for the outside hospital. There he had an unremarkable echocardiogram with no wall motion abnormalities, and a stress test that was deemed probably low risk, based on the read available: There is a medium size, mild intensity basal to?mid inferior and inferoseptal wall defect. This is occurring in the setting of diaphragmatic attenuation which could account for the defect however ischemia and/or scar cannot be ruled out. No segmental wall motion abnormalities noted on gated imaging. He was admitted for further evaluation for either TIA or stroke. He did have an MRI already which did show an acute infarct in the left hays radiata. He was given an aspirin and Plavix load. Prior TTE at [facility] on 05/31 The ejection fraction is estimated to be 60-65%. The basal inferior and inferoseptal strange are hypokinetic. Diastolic parameters suggest probable normal left ventricular diastolic function and normal filling pressures. The right ventricle is normal in size and function. Pulmonary artery pressures cannot be estimated because of the lack of a measurable TR jet velocity but the IVC suggests a CVP of around 3 mmHg. The ascending aorta is mildly enlarged. Compared to the prior study 03/15/2019, the left ventricle is more dynamic and the anterior hypokinesis has resolved. [facility] results in 2019: 1) Coronary angiography: left dominance ?A. Left main: normal caliber vessel with 20% calcific stenosis distally. ?B. Left Anterior Descending (LAD) Artery: normal caliber vessel with 80% tubular calcific stenosis between the first and second diagonal branches. ? The first diagonal branch has 99% eccentric stenosis proximally and 2nd diagonal branch appears to have 80% ostial stenosis. ? ?C. Left Circumflex (LCx): ?Large caliber dominant vessel with mild luminal irregularities. ?There are collaterals going to the RCA. ?D. Right Coronary Artery: small to medium caliber vessel with chronic total occlusion in the mid segment. ?There are collaterals from the LCx to the RCA. Discharge Providers Provider Date of admission: 06/02/24 12:30 Discharge Date: 06/08/24 Primary care physician: Dave Orellana DO Consults: 06/02/24 14:50 Consult to Occupational Therapy Evaluate & Treat Comment: Physician Instructions: Evaluate and treat Consult to Physical Therapy Evaluate & Treat Comment: Physician Instructions: Evaluate and Treat 06/03/24 11:55 Consult to Dietitian, Adult Routine Comment: Reason For Exam: UNCONTROLLED DIABETES Discharge provider: Colin Luna DO Summary Hospital Course Discharge Diagnosis: 1. Acute left hays radiata stroke , present on admission and active. 2. Diabetes mellitus type 2 , present on admission and stable. 3. Coronary artery disease, present on admission and stable. 4. CKD 3 , present on admission and stable. 5. Left shoulder pain, stable Hospital Course: This is an 84-year-old male with a past medical history of type 2 diabetes, CAD, CKD stage 3 who presented with right-sided weakness after recent chest pain evaluation at an outside hospital. His right-sided weakness actually improved quite quickly, though he was noted to have continued deficits and difficulty ambulating with therapy evaluations. MRI was performed shortly after admission and did show an acute left hays radiata infarct. He was started on dual antiplatelet therapy with aspirin and Plavix, which should continue for a total of 21 days. Given aspirin failure he should ideally continue on Plavix after discharge. At outside hospital his A1c was noted to be 11.9, and while as home medications were held here, his glucoses were quite high. Recommend continuing his home medications Jardiance, glipizide, and metformin. Continue close monitoring of glucose levels at [facility] he [facility] at discharge, but given his elevated A1c he may need additional therapy or titration possibly with Lantus after discharge if his sugars are unable to be controlled. He did also complain of left shoulder pain during the course of his stay, which showed degenerative changes of his left AC and glenohumeral joints, but no fractures. Continued follow-up with therapy as an outpatient is recommended and can continue as needed pain relief with [id number] pain medications. Time Spent with Patient Time spent: Greater than 30 minutes Exam Vital Signs (past 8 hours): - 06/08/24 07:00 06/08/24 08:00 06/08/24 08:17 Temperature 97.1 F L Pulse Rate 72 70 Respiratory Rate 16 Blood Pressure 134/74 134/74 Pulse Oximetry 95 97 Oxygen Delivery Method Room Air Oxygen Flow Rate 0 Oxygen Delivery Method Room Air Oxygen Flow Rate 0 Narrative Exam Narrative: NAD, alert and oriented. Fluent speech. Lungs are clear, normal rate and effort. Heart is regular, no murmur gallop or rub. Abdomen is soft, non distended. Extremities are free of edema. Strength +5/5 in all extremities, no reported deficits in sensation to light touch all extremities. Objective Labs 06/05/24 05:30 06/05/24 05:30 [facility] Social History household members: spouse Smoking Status: Never smoker alcohol intake: former Discharge Plan Discharge Plan Patient Disposition: SNF Transfer to: [facility] Provider Discharge Comment: You were admitted with an acute stroke which caused your right leg weakness. You are to continue taking the aspirin and plavix (clopidogrel) as prescribed by your mainframe systems programmer. This helps with stroke prevention. Please continue to follow up with your primary care provider to work on your diabetes management as well. Continue to take the atorvastatin as it will help with stabilizing plaque in your arteries and further reduce risk of recurrent stroke. Return to the ED for recurring stroke symptoms such as facial droop, trouble speaking or swallowing, weakness in an arm, leg, or hand. Discharge orders & Medications Prescriptions: New aspirin 81 mg Tablet,Delayed Release (Dr/Ec) 81 mg PO DAILY Qty: 30 0RF clopidogrel 75 mg Tablet 75 mg PO DAILY Qty: 30 0RF Continued atorvastatin 40 mg tablet 40 mg PO DAILY metformin 500 mg tablet 500 mg PO BID glipizide 10 mg tablet extended release 24hr 10 mg PO BID felodipine 10 mg tablet extended release 24 hr 10 mg PO DAILY losartan 100 mg tablet 100 mg PO DAILY Tradjenta 5 mg Tablet 5 mg PO DAILY Jardiance 25 mg tablet 25 mg PO DAILY Follow up/Referrals: Dave Orellana DO [Primary Care Provider] - Diet/Activity/Treatments Diet: Diet as Tolerated and Carb-consistent/Diabetic Liquid consistency: Normal/Thin Food texture: Regular Activity: As tolerated Oxygen: N/A Special Rehabilitation Services Reason for rehabilitation: Therapy following stroke Rehab type: Physical therapy and Occupational therapy Visit Report/Discharge Packet Stand Alone Forms: Patient Portal/API Discharge Data Primary Care Provider: Dave Orellana Quality VTE Deep Vein Thrombosis/Pulmonary Embolism Present on Admission: No
[2024-06-08 10:03] LABS: COVID19 -Nasal RAPID Negative (Negative)
--- NOTE | 2024-06-08 10:34 | CM.DPC ---
DCP Cont. Reviewed EMR and team rounds for status updates. Pt has been medically cleared for d/c to [facility] for SNF rehab. They will transport him at 2:00pm. D/c clinicals and PASSAR faxed, no further CM d/c needs indicated at this time.
--- NOTE | 2024-06-08 15:03 | PC.NURSE ---
pt in w/c with facility designee. Report given to Velvet DEVI @ [facility]. All questions answered.
== END 2024-06-08 14:55 | DRG 65 ==
LOC: ED 12:30 → AC 13:09
PROVIDERS: Admitting Provider Internal Medicine; Emergency Provider Emergency Medicine; PCP Student in an Organized Health Care Education/Training Program; Referring Provider Emergency Medicine; Visit Provider Internal Medicine
DX: I63.89 Other cerebral infarction (principal); G81.91 Hemiplegia, unspecified affecting right dominant side; I25.10 Atherosclerotic heart disease of native coronary artery without angina pectoris; M25.512 Pain in left shoulder; E11.22 Type 2 diabetes mellitus with diabetic chronic kidney disease; N18.30 Chronic kidney disease, stage 3 unspecified; E11.65 Type 2 diabetes mellitus with hyperglycemia; R47.81 Slurred speech; I12.9 Hypertensive chronic kidney disease with stage 1 through stage 4 chronic kidney disease, or unspecified chronic kidney disease; R29.703 NIHSS score 3; R29.704 NIHSS score 4; Z79.84 Long term (current) use of oral hypoglycemic drugs
CPT/HCPCS: 36415; 70450; 70496; 70498; 70551; 71045; 73030; 80048; 80053; 80061; 82962; 83735; 84443; 84484; 85025; 85610; 85730; 87635; 93005; 93010; 97112; 97116; 97162; 97166; 97530; 97535; 99284; 99285; J1650; J1815; Q9967

== ENCOUNTER → 2025-01-06 09:42 | Outpatient (CLI) | payer MEDICARE, SELFPAY ==
[2024-06-02 14:05] VITALS: BMI 23.1
== END ==
PROVIDERS: Family Provider Student in an Organized Health Care Education/Training Program; Visit Provider Physician Assistant
DX: E11.621 Type 2 diabetes mellitus with foot ulcer (principal); L97.422 Non-pressure chronic ulcer of left heel and midfoot with fat layer exposed; L84 Corns and callosities; E11.49 Type 2 diabetes mellitus with other diabetic neurological complication; E78.5 Hyperlipidemia, unspecified; E11.22 Type 2 diabetes mellitus with diabetic chronic kidney disease; I12.9 Hypertensive chronic kidney disease with stage 1 through stage 4 chronic kidney disease, or unspecified chronic kidney disease; N18.30 Chronic kidney disease, stage 3 unspecified; G30.9 Alzheimer's disease, unspecified
CPT/HCPCS: 11042; 99204; 99214

== ENCOUNTER → 2025-01-06 11:54 | Outpatient (CLI) | payer MEDICARE, SELFPAY ==
[2024-06-02 14:05] VITALS: BMI 23.1
--- NOTE | 2025-01-06 11:57 | DI.RAD.S_ITS ---
PROCEDURE: XR FOOT LT MIN 3V INDICATIONS: diabetic foot ulcer, left plantar second metatarsal head TECHNIQUE: 3 views of the foot were acquired. COMPARISON: None. FINDINGS: Bones: No fractures or dislocations. Mild diffuse interphalangeal and 1st MTP joint degeneration. No suspicious bony lesions. Soft tissues: No tibiotalar joint effusion. Achilles tendon appears normal. IMPRESSION: No erosive changes are seen. Dictated by: Reggie Brown M.D. on 01/07/2025 at 14:25 Approved by: Reggie Brown M.D. on 01/07/2025 at 14:26
== END ==
PROVIDERS: Referring Provider Physician Assistant; Visit Provider Physician Assistant
DX: E11.621 Type 2 diabetes mellitus with foot ulcer (principal); L97.529 Non-pressure chronic ulcer of other part of left foot with unspecified severity; L97.422 Non-pressure chronic ulcer of left heel and midfoot with fat layer exposed; L84 Corns and callosities; E11.49 Type 2 diabetes mellitus with other diabetic neurological complication; E78.5 Hyperlipidemia, unspecified; E11.22 Type 2 diabetes mellitus with diabetic chronic kidney disease; I12.9 Hypertensive chronic kidney disease with stage 1 through stage 4 chronic kidney disease, or unspecified chronic kidney disease; N18.30 Chronic kidney disease, stage 3 unspecified; G30.9 Alzheimer's disease, unspecified
CPT/HCPCS: 11042; 73630; 99214

== ENCOUNTER → 2025-01-13 10:01 | Outpatient (CLI) | payer MEDICARE, SELFPAY ==
[2024-06-02 14:05] VITALS: BMI 23.1
== END ==
LOC: WC 10:02
PROVIDERS: Family Provider Student in an Organized Health Care Education/Training Program; Referring Provider Student in an Organized Health Care Education/Training Program; Visit Provider Physician Assistant
DX: E11.621 Type 2 diabetes mellitus with foot ulcer (principal); L97.522 Non-pressure chronic ulcer of other part of left foot with fat layer exposed; L84 Corns and callosities
CPT/HCPCS: 11042; 99212

== ENCOUNTER → 2025-01-20 15:03 | Outpatient (CLI) | payer MEDICARE, SELFPAY ==
[2024-06-02 14:05] VITALS: BMI 23.1
== END ==
LOC: WC 15:04
PROVIDERS: Family Provider Student in an Organized Health Care Education/Training Program; Referring Provider Student in an Organized Health Care Education/Training Program; Visit Provider Physician Assistant
DX: Z09 Encounter for follow-up examination after completed treatment for conditions other than malignant neoplasm (principal); Z86.31 Personal history of diabetic foot ulcer
CPT/HCPCS: 99212; 99213